=== PATIENT | female | born 1945 | race Native Hawaiian/Other Pacific Islander ===

== ENCOUNTER 2020-06-22 10:14 | Outpatient (CLI) | payer MEDICARE | END 2020-06-22 10:15 | disposition critical access hospital (66) | LOC: EMS 10:14 | PROVIDERS: ATTEND Surgery | DX: R55 Syncope and collapse (principal) | CPT/HCPCS: A0425; A0429 ==

== ENCOUNTER 2020-10-02 08:58 | Outpatient (CLI) | payer MEDICARE | END 2020-10-02 08:59 | disposition short-term general hospital (02) | LOC: EMS 08:58 | PROVIDERS: ATTEND Surgery | DX: R46.4 Slowness and poor responsiveness (principal) | CPT/HCPCS: A0425; A0427 ==

== ENCOUNTER 2021-05-04 08:00 | Outpatient (CLI) | payer MEDICARE ==
[2021-05-04 20:59] LABS: ALBUMIN 3.1 g/dL (3.2-5.5); ALBUMIN/GLOBULIN RATIO 1.2 (1.0-2.2); BILIRUBIN,TOTAL 0.8 mg/dL (0.2-1.0); CALCIUM 8.8 mg/dL (8.5-10.3); CREATININE 0.8 mg/dL (0.4-1.0); POTASSIUM 3.7 mmol/L (3.5-5.0); TOTAL PROTEIN 5.7 g/dL (6.7-8.2)
[2021-05-04 21:17] LABS: PARTIAL THROMBOPLASTIN TIME 59.7 secs (24.9-33.3)
[2021-05-04 21:28] LABS: PT - PROTHROMBIN TIME 46.1 secs (9.9-12.6)
[2021-05-05 12:24] LABS: BASOPHILS % (AUTO) 0.6 %; EOSINOPHILS % (AUTO) 1.3 %; HCT - HEMATOCRIT 43.3 % (37.0-47.0); HGB - HEMOGLOBIN 13.4 g/dL (12.0-16.0); LYMPHOCYTES # (AUTO) 0.5 10^3/uL (1.5-3.5); LYMPHOCYTES % (AUTO) 14.6 %; MEAN CORPUSCULAR HEMOGLOBIN 30.5 pg (27.0-31.0); MEAN CORPUSCULAR HGB CONC 30.9 g/dL (32.0-36.0); MEAN CORPUSCULAR VOLUME 98.4 fL (81.0-99.0); MEAN PLATELET VOLUME 9.7 fL (7.9-10.8); MONOCYTES # (AUTO) 0.3 10^3/uL (0.0-1.0); MONOCYTES % (AUTO) 8.9 %; NEUTROPHILS # (AUTO) 2.4 10^3/uL (1.5-6.6); NEUTROPHILS % (AUTO) 74.6 %; PLT - PLATELET COUNT 292 10^3/uL (130-450); WHITE BLOOD COUNT 3.2 x10^3/uL (4.8-10.8)
== END 2021-05-04 23:59 | disposition home or self-care (01) ==
LOC: LAB.N 08:00
PROVIDERS: ATTEND Nurse Practitioner
DX: R31.9 Hematuria, unspecified (principal)
CPT/HCPCS: 36415; 80053; 85025; 85610; 85730; 87086

== ENCOUNTER 2021-05-05 09:32 | Emergency (ER) | payer MEDICARE ==
[2021-05-05 09:52] VITALS: BP 137/74
[2021-05-05 11:06] LABS: PT - PROTHROMBIN TIME 45.6 secs (9.9-12.6)
[2021-05-05 11:13] LABS: PARTIAL THROMBOPLASTIN TIME 61.4 secs (24.9-33.3)
[2021-05-05 11:20] LABS: INR 4.5 (0.8-1.2)
[2021-05-05 11:25] LABS: BILIRUBIN,URINE NEGATIVE (NEGATIVE); GLUCOSE, URINE (UA) NEGATIVE (NEGATIVE); KETONES,URINE (UA) NEGATIVE (NEGATIVE); LEUKOCYTE ESTERASE, URINE TRACE (NEGATIVE); NITRITE,URINE POSITIVE (NEGATIVE); OCCULT BLOOD,URINE LARGE (NEGATIVE); PH,URINE 6.5 PH (5.0-7.5); PROTEIN,URINE 100 mg/dL (NEGATIVE); UROBILINOGEN,URINE 1 (NORMAL) E.U./dL (NORMAL)
[2021-05-05 11:28] LABS: CLARITY,URINE SL. CLOUDY (CLEAR)
[2021-05-05 11:30] LABS: BACTERIA,URINE Rare /HPF (None Seen); RBC,URINE TNTC /HPF (0-5); SQUAMOUS EPITHELIAL CELL,UR RARE Squamous (<= Few)
--- NOTE | 2021-05-05 11:53 | ED Physician Documentation ---
PD HPI FEMALE - Stated complaint Stated Complaint: LAB ABN WALK IN CLINIC REF - Chief complaint Chief Complaint: UTI - History obtained from History obtained from: Patient - History of Present Illness Timing - onset: How many days ago (4) Timing - duration: Days (4) Timing - details: Gradual onset, Still present, Waxing and waning Associated symptoms: Urinary frequency, Hematuria. No: Fever, Vaginal bleeding, Vaginal discharge Contributing factors: Other (she is on Coumadin for heart valve issue. Was to be Rx Eliquis but her Son says PCP opted to stay with the Coumadin, so pt is only on the one. I told him to ensure not taking both anticoagulants by mistake.) Similar symptoms before: Diagnosis (UTI) Recently seen: Clinic (seen at walk in clinic yesterday for the few days of urinary frequency and hematuria. She had labs done of CBC, PT/PTT, dip urine test and chemistry panel. 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 Psych: None Musculoskeletal: None Derm: None - Past Surgical History Past Surgical History: Yes - Present Medications Home Medications: Ambulatory Orders Medication Instructions Recorded Confirmed Aspirin [Dale Aspirin] 81 mg PO DAILY 05/05/21 05/05/21 Atorvastatin [Lipitor] 20 mg PO DAILY 05/05/21 05/05/21 Doxycycline Monohydrate 100 mg PO BID 05/05/21 05/05/21 Losartan [Cozaar] 50 mg PO DAILY 05/05/21 05/05/21 Metoprolol Succinate [Toprol Xl] 50 mg PO DAILY 05/05/21 05/05/21 Warfarin Sodium [Coumadin] 2 mg PO DAILY 05/05/21 05/05/21 cephALEXin [Keflex] 500 mg PO TID 6 Days #18 cap 05/05/21 - Allergies Allergies/Adverse Reactions: Allergies Allergy/AdvReac Type Severity Reaction Status Date / Time morphine Allergy Unknown Verified 08/10/21 09:52 - Social History Does the pt smoke?: No Smoking Status: Never smoker Does the pt drink ETOH?: Yes Does the pt have substance abuse?: No - Immunizations Immunizations are current?: Yes - POLST Patient has POLST: No PD ED PE NORMAL - Vitals Vital signs reviewed: Yes - General General: Alert and oriented X 3, Well developed/nourished - Abdomen Abdomen: Soft, Non tender - Back Back: No CVA TTP - Derm Derm: Normal color, Warm and dry - Neuro Neuro: No motor deficit, Normal speech Results - Vitals Vitals: Vital Signs - 24 hr 05/05/21 09:46 Temperature 37.6 C Heart Rate 67 Respiratory 18 Rate Blood Pressure 137/74 H O2 Saturation 99 Oxygen O2 Source Room air - Labs Labs: Laboratory Tests 05/05/21 05/05/21 10:55 11:14 PT 45.6 H INR 4.5 H* APTT 61.4 H Urine Color RED/BLOODY Urine Clarity SL. CLOUDY Urine pH 6.5 Ur Specific [place] 1.020 Urine Protein 100 H Urine Glucose (UA) NEGATIVE Urine Ketones NEGATIVE Urine Occult Blood LARGE H Urine Nitrite POSITIVE H Urine Bilirubin NEGATIVE Urine Urobilinogen 1 (NORMAL) Ur Leukocyte Esterase TRACE H Urine RBC TNTC H Urine WBC 4-5 Ur Squamous Epith Cells RARE Squamous Urine Bacteria Rare Ur Microscopic Review INDICATED Urine Culture Comments INDICATED PD MEDICAL DECISION MAKING - ED course Complexity details: reviewed old records, reviewed results, considered differential (frewuency and hematuria, most likel UTI. She is on coumadin so appropriate that coags elevated. I did not see INR done from walk in so did it here, along with repeat UA, which showed obvious infection. ), d/w patient Departure - Departure Disposition: 01 Home, Self Care Clinical Impression: Anticoagulant long-term use Urinary tract infection Qualifiers: Urinary tract infection type: acute cystitis Hematuria presence: with hematuria Qualified Code(s): N30.01 - Acute cystitis with hematuria Hematuria Qualifiers: Hematuria type: unspecified type Qualified Code(s): R31.9 - Hematuria, unspecified Condition: Stable Record reviewed to determine appropriate education?: Yes Instructions: ED UTI Cystitis Female Follow-Up: Danii Wilkins MD [Primary Care Provider] - Prescriptions: cephALEXin [Keflex] 500 mg PO TID 6 Days #18 cap Comments: Your Coumadin level is elevated above the therapeutic range slightly. The level today is 4.5. I would suggest holding your Coumadin dose today. Resume it tomorrow and have your INR/Coumadin level checked again at the end of the week 3 your primary care. Your urine does show signs of infection and is likely the irritation leading to the blood in the urine. Use the cephalexin 3 times a day for 6 days for the infection. I would anticipate improvement in the bloody urine over the next few days. Return if worse symptoms overall. Be sure you are taking only the Coumadin and not also taking the Eliquis recent prescription. Discharge Date/Time: 05/05/21 12:30
[2021-05-05] MEDS ORDERED: cephALEXin 250 MG CAPSULE PO STA (12:21)
== END 2021-05-05 12:30 | disposition home or self-care (01) ==
LOC: ED 09:32
DX: N30.01 Acute cystitis with hematuria (principal); Z79.01 Long term (current) use of anticoagulants; Z79.82 Long term (current) use of aspirin; I10 Essential (primary) hypertension; E10.9 Type 1 diabetes mellitus without complications
CPT/HCPCS: 36415; 81001; 85610; 85730; 87086; 99283; A9270; 81003

== ENCOUNTER 2021-05-28 10:19 | Outpatient (CLI) | payer MEDICARE, MEDICAID | END 2021-05-28 10:20 | disposition critical access hospital (66) | LOC: EMS 10:19 | DX: R55 Syncope and collapse (principal); I48.92 Unspecified atrial flutter; Z79.01 Long term (current) use of anticoagulants | CPT/HCPCS: A0425; A0429 ==

== ENCOUNTER 2021-05-28 10:40 | Inpatient (IN) | payer MEDICARE, MEDICAID ==
--- NOTE | 2021-05-28 10:55 | ED Physician Documentation ---
PD HPI SYNCOPE - Stated complaint Stated Complaint: SYNCOPE - Chief complaint Chief Complaint: General - History obtained from History obtained from: Patient, EMS - History of Present Illness Witnessed: Witnessed Timing - onset: Today Duration: Seconds Preceding symptoms: Vision changes, Light headed, Generalized weakness Associated symptoms: No: Seizure, Incontinant of stool Contributing factors: Decreased PO intake Injury occurred: None Similar symptoms before: Diagnosis (syncope related to dehydration) Recently seen: Not recently seen - Additional information Additional information: 75-year-old female with a history of atrial flutter and frequent urinary tract infections has had syncope previously related to volume depletion. Today her family attempted to assist her up from the bed, she stood, became confused and then had a period of unresponsiveness for several seconds. She was laid back down, came to and she is now brought to the hospital by ambulance. She did not injure herself. Symptoms lasted 10 to 15 seconds. She did not have seizure or vomiting she was not incontinent of urine and did not injure herself. In talking with the son by telephone he indicates that the patient has had some issue with pain in her legs for the past several days and she has been staying in bed more than usual. She usually will get herself up to go to the bathroom. She has decreased her oral intake. 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 Psych: None Musculoskeletal: None Derm: None - Past Surgical History Past Surgical History: Yes - Present Medications Home Medications: Ambulatory Orders Medication Instructions Recorded Confirmed Aspirin [[place] Aspirin] 81 mg PO DAILY 05/05/21 05/05/21 Atorvastatin [Lipitor] 20 mg PO DAILY 05/05/21 05/05/21 Losartan [Cozaar] 50 mg PO DAILY 05/05/21 05/05/21 Metoprolol Succinate [Toprol Xl] 50 mg PO DAILY 05/05/21 05/05/21 Warfarin Sodium [Coumadin] 5 mg PO DAILY 05/05/21 05/05/21 Apixaban [Eliquis] 5 mg PO BID 05/28/21 - Allergies Allergies/Adverse Reactions: Allergies Allergy/AdvReac Type Severity Reaction Status Date / Time morphine Allergy Unknown Verified 05/28/21 10:48 - Social History Does the pt smoke?: No Smoking Status: Never smoker Does the pt drink ETOH?: Yes Does the pt have substance abuse?: No - Immunizations Immunizations are current?: Yes - POLST Patient has POLST: No PD ED PE NORMAL - Vitals Vital signs reviewed: Yes (Hypertensive) - General General: No acute distress, Well developed/nourished, Other (75-year-old female with a vacant stare is soft-spoken but appears to respond appropriately to questions and is hard of hearing) - HEENT HEENT: Atraumatic, PERRL, EOMI - Neck Neck: Supple, no meningeal sign - Cardiac Cardiac: Other (Irregularly irregular rate and rhythm with a 2 out of 6 holosystolic murmur cholesterol border) - Respiratory Respiratory: No respiratory distress, Clear bilaterally - Abdomen Abdomen: Soft, Non tender - Back Back: No CVA TTP, No spinal TTP - Derm Derm: Normal color, Warm and dry, No rash - Extremities Extremities: No deformity, No edema - Neuro Neuro: serials librarian 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, No motor deficit, No sensory deficit, Other (Speech is soft) Eye Opening: Spontaneous Motor: Obeys Commands Verbal: Oriented GCS Score: 15 - Psych Psych: Normal mood, Normal affect Results - Vitals Vitals: Vital Signs - 24 hr 05/28/21 05/28/21 05/28/21 10:40 12:00 14:00 Temperature 36.4 C L Heart Rate 78 83 83 Respiratory 16 16 16 Rate Blood Pressure 133/77 H 148/71 H 141/78 H O2 Saturation 99 100 100 Oxygen O2 Source Room air - EKG (time done) 1046 Rate: Rate (enter#) (87) Rhythm: Atrial flutter Intervals: Prolonged QT Compare to prior EKG: Changed from prior EKG (SPT 06-22-2020 the QT interval has become prolonged. ) Computer interpretation: Disagree with computer (I see what looks like aflutter. ) - Labs Labs: Laboratory Tests 09/02/21 09/02/21 09/02/21 11:17 11:17 11:17 WBC 8.6 RBC 3.88 L Hgb 12.1 Hct 37.3 MCV 96.1 MCH 31.2 H MCHC 32.4 RDW 14.4 Plt Count 264 MPV 9.5 Neut # (Auto) 7.9 H Lymph # (Auto) 0.3 L Barber # (Auto) 0.3 Eos # (Auto) 0.0 Baso # (Auto) 0.0 Absolute Nucleated RBC 0.00 Nucleated RBC % 0.0 PT 67.7 H INR 6.1 H* Sodium 139 Potassium 3.9 Chloride 104 Carbon Dioxide 22 Anion Gap 13.0 BUN 16 Creatinine 1.0 Estimated GFR (MDRD) 54 L Glucose 102 H Lactic Acid Calcium 8.5 Magnesium 2.1 Total Bilirubin 1.7 H AST 30 ALT 21 Alkaline Phosphatase 47 Troponin I High Sens Total Protein 6.1 L Albumin 3.3 Globulin 2.8 Albumin/Globulin Ratio 1.2 Lipase 22 Urine Color Urine Clarity Urine pH Ur Specific [place] Urine Protein Urine Glucose (UA) Urine Ketones Urine Occult Blood Urine Nitrite Urine Bilirubin Urine Urobilinogen Ur Leukocyte Esterase Urine RBC Urine WBC Ur Squamous Epith Cells Urine Bacteria Urine Mucus Ur Microscopic Review Urine Culture Comments Nasal Adenovirus (PCR) Nasal B. parapertussis DNA (PCR) Nasal Coronavir 229E PCR Nasal Coronavir HKU1 PCR Nasal Coronavir NL63 PCR Nasal Coronavir OC43 PCR Nasal Enterovir/Rhinovir PCR Nasal Influenza B PCR Nasal Influenza A PCR Nasal Parainfluen 1 PCR Nasal Parainfluen 2 PCR Nasal Parainfluen 3 PCR Nasal Parainfluen 4 PCR Nasal RSV (PCR) Nasal B.pertussis DNA PCR Nasal C.pneumoniae (PCR) Ruddy Human Metapneumo PCR Nasal M.pneumoniae (PCR) Nasal SARS-CoV-2 (PCR) 05/28/21 05/28/21 05/28/21 11:17 11:17 14:52 WBC RBC Hgb Hct MCV MCH MCHC RDW Plt Count MPV Neut # (Auto) Lymph # (Auto) Barber # (Auto) Eos # (Auto) Baso # (Auto) Absolute Nucleated RBC Nucleated RBC % PT INR Sodium Potassium Chloride Carbon Dioxide Anion Gap BUN Creatinine Estimated GFR (MDRD) Glucose Lactic Acid 1.7 Calcium Magnesium Total Bilirubin AST ALT Alkaline Phosphatase Troponin I High Sens 11.5 Total Protein Albumin Globulin Albumin/Globulin Ratio Lipase Urine Color YELLOW Urine Clarity CLEAR Urine pH 6.0 Ur Specific [place] 1.025 Urine Protein NEGATIVE Urine Glucose (UA) NEGATIVE Urine Ketones 40 H Urine Occult Blood NEGATIVE Urine Nitrite NEGATIVE Urine Bilirubin NEGATIVE Urine Urobilinogen 1 (NORMAL) Ur Leukocyte Esterase SMALL H Urine RBC 0-5 Urine WBC 11-25 H Ur Squamous Epith Cells FEW Squamous Urine Bacteria Few Urine Mucus Few Strands Ur Microscopic Review INDICATED Urine Culture Comments INDICATED Nasal Adenovirus (PCR) Nasal B. parapertussis DNA (PCR) Nasal Coronavir 229E PCR Nasal Coronavir HKU1 PCR Nasal Coronavir NL63 PCR Nasal Coronavir OC43 PCR Nasal Enterovir/Rhinovir PCR Nasal Influenza B PCR Nasal Influenza A PCR Nasal Parainfluen 1 PCR Nasal Parainfluen 2 PCR Nasal Parainfluen 3 PCR Nasal Parainfluen 4 PCR Nasal RSV (PCR) Nasal B.pertussis DNA PCR Nasal C.pneumoniae (PCR) Ruddy Human Metapneumo PCR Nasal M.pneumoniae (PCR) Nasal SARS-CoV-2 (PCR) 05/28/21 14:55 WBC RBC Hgb Hct MCV MCH MCHC RDW Plt Count MPV Neut # (Auto) Lymph # (Auto) Barber # (Auto) Eos # (Auto) Baso # (Auto) Absolute Nucleated RBC Nucleated RBC % PT INR Sodium Potassium Chloride Carbon Dioxide Anion Gap BUN Creatinine Estimated GFR (MDRD) Glucose Lactic Acid Calcium Magnesium Total Bilirubin AST ALT Alkaline Phosphatase Troponin I High Sens Total Protein Albumin Globulin Albumin/Globulin Ratio Lipase Urine Color Urine Clarity Urine pH Ur Specific [place] Urine Protein Urine Glucose (UA) Urine Ketones Urine Occult Blood Urine Nitrite Urine Bilirubin Urine Urobilinogen Ur Leukocyte Esterase Urine RBC Urine WBC Ur Squamous Epith Cells Urine Bacteria Urine Mucus Ur Microscopic Review Urine Culture Comments Nasal Adenovirus (PCR) NOT DETECTED Nasal B. parapertussis DNA (PCR) NOT DETECTED Nasal Coronavir 229E PCR NOT DETECTED Nasal Coronavir HKU1 PCR NOT DETECTED Nasal Coronavir NL63 PCR NOT DETECTED Nasal Coronavir OC43 PCR NOT DETECTED Nasal Enterovir/Rhinovir PCR NOT DETECTED Nasal Influenza B PCR NOT DETECTED Nasal Influenza A PCR NOT DETECTED Nasal Parainfluen 1 PCR NOT DETECTED Nasal Parainfluen 2 PCR NOT DETECTED Nasal Parainfluen 3 PCR NOT DETECTED Nasal Parainfluen 4 PCR NOT DETECTED Nasal RSV (PCR) NOT DETECTED Nasal B.pertussis DNA PCR NOT DETECTED Nasal C.pneumoniae (PCR) NOT DETECTED Ruddy Human Metapneumo PCR NOT DETECTED Nasal M.pneumoniae (PCR) NOT DETECTED Nasal SARS-CoV-2 (PCR) NOT DETECTED - Rads (name of study) chest Radiology: Prelim report reviewed (Impression: Minimal right hazy basilar opacity with costophrenic angle blunting suggestive of trace effusion with potential dependent change, atelectasis or developing pneumonia), EMP read indepedently, See rad report CT head Radiology: Prelim report reviewed (Impression: 1. No CT evidence of acute intracranial pathology. 2. Diffuse atrophy and mild white matter chronic small vessel ischemic changes.), EMP read indepedently, See rad report Procedures - IVC sono (time) 1048 Bedside IVC sono: IVC measures (cm) (0.77), Dehydration (est 2+ liters deficit) PD MEDICAL DECISION MAKING - ED course Complexity details: reviewed old records, reviewed results, re-evaluated patient, considered differential, d/w patient, d/w family ED course: 75-year-old female with a syncopal episode while standing has had a decreased oral intake so that she would not have to get up to go to the bathroom. She is found to have urinary tract infection. She is administered intravenous saline and has some improvement. She is dehydrated and has urinary tract infection and potentially infection in the lung on x-ray examination. She is administered IV rocephin and after talking to the hospitalist we administered IV zithromax as well. I have reached out to the hospitalist who agrees to care for the patient in the hospital. Departure - Departure Disposition: 66 [facility] DC/Xfer Clinical Impression: Dehydration Urinary tract infection Qualifiers: Urinary tract infection type: acute cystitis Hematuria presence: without hematuria Qualified Code(s): N30.00 - Acute cystitis without hematuria Syncope Qualifiers: Syncope type: unspecified Qualified Code(s): R55 - Syncope and collapse Pneumonia Qualifiers: Pneumonia type: due to unspecified organism Laterality: right Lung location: lower lobe of lung Qualified Code(s): J18.9 - Pneumonia, unspecified organism Condition: Stable
[2021-05-28] MEDS ORDERED: SODIUM CHLORIDE 0.9% 1,000 ML IV STA ×2 (10:56→13:30)
--- NOTE | 2021-05-28 11:14 | XRAY Report ---
PROCEDURE: Chest 1 View X-Ray INDICATIONS: chest pain TECHNIQUE: One view of the chest was acquired. COMPARISON: None FINDINGS: Surgical changes and devices: None. Lungs and pleura: Minimal appearance of hazy opacities noted within the right base with costophrenic angle blunting. Mediastinum: Mediastinal contours appear normal. Heart size is enlarged. Bones and chest wall: No suspicious bony lesions. Overlying soft tissues appear unremarkable. IMPRESSION: Minimal right hazy basilar opacity with costophrenic angle blunting suggestive of trace effusion with potential he dependent change, atelectasis or developing pneumonia. Reviewed by: Nidia Sarabia MD on 05/28/2021 11:13 AM PDT Approved by: Nidia Sarabia MD on 05/28/2021 11:13 AM PDT Station ID: [id number]
[2021-05-28 11:26] LABS: BASOPHILS % (AUTO) 0.2 %; EOSINOPHILS % (AUTO) 0.1 %; HCT - HEMATOCRIT 37.3 % (37.0-47.0); HGB - HEMOGLOBIN 12.1 g/dL (12.0-16.0); LYMPHOCYTES # (AUTO) 0.3 10^3/uL (1.5-3.5); LYMPHOCYTES % (AUTO) 3.5 %; MEAN CORPUSCULAR HEMOGLOBIN 31.2 pg (27.0-31.0); MEAN CORPUSCULAR HGB CONC 32.4 g/dL (32.0-36.0); MEAN CORPUSCULAR VOLUME 96.1 fL (81.0-99.0); MEAN PLATELET VOLUME 9.5 fL (7.9-10.8); MONOCYTES # (AUTO) 0.3 10^3/uL (0.0-1.0); MONOCYTES % (AUTO) 3.8 %; NEUTROPHILS # (AUTO) 7.9 10^3/uL (1.5-6.6); NEUTROPHILS % (AUTO) 92.2 %; PLT - PLATELET COUNT 264 10^3/uL (130-450); RED BLOOD COUNT 3.88 10^6/uL (4.20-5.40); RED CELL DISTRIBUTION WIDTH 14.4 % (12.0-15.0); WHITE BLOOD COUNT 8.6 x10^3/uL (4.8-10.8)
[2021-05-28 11:34] LABS: PT - PROTHROMBIN TIME 67.7 secs (9.9-12.6)
[2021-05-28 11:40] LABS: INR 6.1 (0.8-1.2)
[2021-05-28 11:42] LABS: ALBUMIN 3.3 g/dL (3.2-5.5); ALBUMIN/GLOBULIN RATIO 1.2 (1.0-2.2); BILIRUBIN,TOTAL 1.7 mg/dL (0.2-1.0); CALCIUM 8.5 mg/dL (8.5-10.3); MAGNESIUM 2.1 mg/dL (1.7-2.8); POTASSIUM 3.9 mmol/L (3.5-5.0); TOTAL PROTEIN 6.1 g/dL (6.7-8.2)
--- NOTE | 2021-05-28 12:16 | CT Report ---
PROCEDURE: HEAD WO INDICATIONS: syncope altered LOC warfarin TECHNIQUE: Noncontrast 4.5 mm thick angled axial sections acquired from the foramen magnum to the vertex. For r adiation dose reduction, the following was used: automated exposure control, adjustment of mA and/or kV according to patient size. COMPARISON: None. FINDINGS: Image quality: Excellent. CSF spaces: Basal cisterns are patent. No extra-axial fluid collections. The ventricles are symmet dereje in size and shape. Brain: No intracranial bleeds or masses. There is cerebral volume loss for age, with resultant vent ricular and sulcal prominence. There are periventricular and deep white matter chronic small vessel ischemic changes. There is intracranial internal carotid artery atherosclerosis. Skull and face: Calvarium and visualized facial bones appear intact, without suspicious lesions. Sinuses: Visualized sinuses and mastoids are clear. IMPRESSION: 1. No CT evidence of acute intracranial pathology. 2. Diffuse atrophy and mild white matter chronic small vessel ischemic changes. Reviewed by: Benito Webb MD on 05/28/2021 12:15 PM PDT Approved by: Benito Webb MD on 05/28/2021 12:15 PM PDT Station ID: [id number]
[2021-05-28 15:03] LABS: GLUCOSE, URINE (UA) NEGATIVE (NEGATIVE); KETONES,URINE (UA) 40 mg/dL (NEGATIVE); LEUKOCYTE ESTERASE, URINE SMALL (NEGATIVE); NITRITE,URINE NEGATIVE (NEGATIVE); OCCULT BLOOD,URINE NEGATIVE (NEGATIVE); PROTEIN,URINE NEGATIVE (NEGATIVE); UROBILINOGEN,URINE 1 (NORMAL) E.U./dL (NORMAL)
[2021-05-28 15:06] LABS: CLARITY,URINE CLEAR (CLEAR)
[2021-05-28 15:11] LABS: BACTERIA,URINE Few /HPF (None Seen); ICTOTEST,URINE NEGATIVE; MUCUS,URINE Few Strands; RBC,URINE 0-5 /HPF (0-5); SQUAMOUS EPITHELIAL CELL,UR FEW Squamous (<= Few)
[2021-05-28 15:12] LABS: BILIRUBIN,URINE NEGATIVE (NEGATIVE)
[2021-05-28] MEDS ORDERED: cefTRIAXone 1 GM in SODIUM CHLORIDE 0.9% MINIBAG 100 ML IV STA (15:38)
[2021-05-28] MEDS ORDERED: AZITHROMYCIN INJ 500 MG in SODIUM CHLORIDE 0.9% 250 ML IV STA (16:00)
[2021-05-28 16:12] LABS: B. PARAPERTUSSIS- RESP PCR PAN NOT DETECTED; B. PERTUSSIS- RESP PCR PANEL NOT DETECTED; C. PNEUMONIAE- RESP PCR PANEL NOT DETECTED; CORONAVIRUS 229E-RESP PCR NOT DETECTED; CORONAVIRUS HKU1-RESP PCR NOT DETECTED; CORONAVIRUS NL63-RESP PCR NOT DETECTED; CORONAVIRUS OC43-RESP PCR NOT DETECTED; HUMAN METAPNEUMOVIRUS NOT DETECTED; INFLUENZA A- RESP PCR PANEL NOT DETECTED; INFLUENZA B - RESP PCR PANEL NOT DETECTED; M. PNEUMONIAE- RESP PCR PANEL NOT DETECTED; PARAINFLUENZA VIRUS 1 NOT DETECTED; PARAINFLUENZA VIRUS 2 NOT DETECTED; PARAINFLUENZA VIRUS 3 NOT DETECTED; PARAINFLUENZA VIRUS 4 NOT DETECTED; RHINOVIRUS/ENTEROVIRUS NOT DETECTED; RSV- RESP PCR PANEL NOT DETECTED; SARS-CoV-2 -RESP PCR PANEL NOT DETECTED
--- NOTE | 2021-05-28 16:37 | HISTORY & PHYSICAL EXAMINATION ---
Chief Complaint - Chief Complaint Chief Complaint: Left leg pain History of Present Illness - Admitted From Admitted From:: Home - History Obtained From Records Reviewed: Yes History obtained from: Patient, Daughter in law, ER Physician, EMR - History of Present Illness HPI Comment/Other: This is a 75-year-old female with a past medical history significant for atrial fibrillation/flutter on Coumadin who presents today after having a syncopal episode at home. The patient tells me she is here today because of leg pain. She denies any syncope. She states her leg has been painful for the past few days and this has caused her to ambulate less. She states the pain is throughout her leg and she had decreased range of motion due to the pain. It is worse with activity and better with rest. She reports no numbness or tingling in the lower extremities. She denies any trauma or falls. She reports no chest pain, dyspnea. She does not believe that she passed out today. She denies any cough, fever, chills, dysuria, urgency, hematuria. She believes she has had adequate oral intake over the past few days. The patient's daughter in law tells me that today when the patient got out of bed to walk with a walker she all of a sudden became quite "shaky." The patient became less responsive but did not completely pass out. She brought the patient down to her knees to prevent a fall and she felt like her eyes became glossy and rolled back for a brief period. She did not notice any seizure-like activity per se but she felt like it was close to a seizure. She did not notice any urinary incontinence. She states she has similar episode over a year ago and it was attributed to dehydration at that time. She states the patient has not eat or drink very much whatsoever and she stays in bed for most of the day. She does not report has been in physical therapy and her biggest complaint lately has just been the left leg pain. She saw her primary care edition prescribe her tramadol yesterday but she has not yet taken this. She tells me that the patient was diagnosed with urinary tract infection last month and she completed 2 weeks of treatment for it. She states the patient has been compliant with her Coumadin and and the only recent medication change was the antibiotics which she is no longer taking. The patient did have a stroke in September of this year and she was hospitalized for 5 days. The patient reportedly has not been quite the same since then and can be a little forgetful at times and just does not participate in activity as much as she used to. She normally uses a walker to ambulate. In the emergency department, she is noted to be hemodynamically stable. She was given IV fluids and labs were obtained which were unremarkable including a normal troponin and lactic acid. CT head was unremarkable. Chest x-ray suggested a trace effusion versus atelectasis or pneumonia. Urinalysis revealed pyuria and leukocyte esterase with few bacteria. She was given ceftriaxone in the emergency department. Given the above findings, medicine was consulted for admission. The patient has a POLST form which states she is a DNR and she confirms this today History - Past Medical History Cardiovascular: reports: Hypertension, High cholesterol, Atrial flutter, Atrial fibrillation Respiratory: reports: None Neuro: reports: None GI: reports: None [employer]IN: reports: None : reports: None HEENT: reports: Chronic hearing loss Psych: reports: None Musculoskeletal: reports: None Derm: reports: None MRSA Hx?: No - Family & Social History Family History Comment/Other: She reports her father from lung cancer. He was a smoker. Living arrangement: At home Living Situation: With family Social History Notes: She lives at home with her son. She denies smoking. She reports rare alcohol use. - POLST Patient has POLST: No Meds/Allgy - Home Medications Home Medications: Ambulatory Orders Medication Instructions Recorded Confirmed Aspirin [[place] Aspirin] 81 mg PO DAILY 05/05/21 05/05/21 Atorvastatin [Lipitor] 20 mg PO DAILY 05/05/21 05/05/21 Losartan [Cozaar] 50 mg PO DAILY 05/05/21 05/05/21 Metoprolol Succinate [Toprol Xl] 50 mg PO DAILY 05/05/21 05/05/21 Warfarin Sodium [Coumadin] 5 mg PO DAILY 05/05/21 05/05/21 - Allergies Allergies/Adverse Reactions: Allergies Allergy/AdvReac Type Severity Reaction Status Date / Time morphine Allergy Unknown Verified 05/28/21 10:48 Review of Systems - Constitutional Constitutional: denies: Fever, Chills, Poor appetite - Ears, Nose & Throat Ears, Nose & Throat: denies: Nasal congestion, Sore throat - Cardiovascular Cariovascular: reports: Lightheadedness. denies: Chest pain, Syncope, Exertional dyspnea, Decr. exercise tolerance - Respiratory Respiratory: denies: Cough, Sputum production, SOB at rest, SOB with exertion - Gastrointestinal Gastrointestinal: denies: Abdominal pain, Nausea, Vomiting - Genitourinary Genitourinary: denies: Dysuria, Frequency, Urgency, Hematuria - Musculoskeletal Musculoskeletal: reports: Stiffness, Limited range of motion, Other (Leg pain.). denies: Back pain - Neurological Neurological: reports: Dizziness. denies: General weakness, Focal weakness, Numbness - All Other Systems All Other Systems: reports: Reviewed and negative Exam - Vital Signs Reviewed Vital Signs: Yes Vital Signs: Vital Signs x48h Temp Pulse Resp BP Pulse Ox 05/28/21 14:00 83 16 141/78 H 100 05/28/21 12:00 83 16 148/71 H 100 05/28/21 10:40 36.4 C L 78 16 133/77 H 99 - Physical Exam General Appearance: positive: No acute distress, Alert Eyes Bilateral: positive: Normal inspection, Conjunctivae nml ENT: positive: Dry mucous membranes. negative: No signs of dehydration Neck: positive: Nml inspection Respiratory: positive: No respiratory distress, Breath sounds nml. negative: Wheezes, Rales Cardiovascular: positive: No murmur, Irregularly irregular. negative: Tachycardia, Bradycardia Abdomen: positive: Non-tender, No distention. negative: Tenderness Skin: positive: Warm, Dry Extremities: positive: No pedal edema, Other (There is no obvious erythema or edema of the left lower extremity but it is tender over the femur and she has pain at the left hip with hip flexion and external rotation.) Neurologic/Psychiatric: positive: Disoriented to time (Not oriented to year.), Other (No focal deficits.). negative: Disoriented to person, Disoriented to place Conclusion/Plan - Problem List (1) Near syncope Conclusion/Plan: Does not appear that she had a syncopal episode based off of history. It also does not sound like a seizure. I do wonder if she may have been orthostatic from moving to the standing position from seated when she felt like she was going to pass out. She is known history of atrial flutter and she is currently rate controlled. Troponin is normal. We will hydrate her with IV fluids and check orthostatics. We will obtain records him on hospital given she an echocardiogram earlier this year and we do not have echocardiogram available for the next few days. Suspect that she will be able to go home tomorrow. (2) Dehydration Conclusion/Plan: She does appear dehydrated and family reports decreased oral intake at home and I suspect is likely contributing to her near syncopal episodes. We will hydrate her with IV lactated Ringer's. Encourage oral intake. (3) Supratherapeutic INR Conclusion/Plan: Her INR is elevated at 6.1. She was prescribed antibiotics last month for UTI but no other changes to medications. We will hold her Coumadin today and recheck INR in the morning. She will need a dose adjustment of her Coumadin on discharge and to follow-up with her primary care physician. (4) Atrial flutter Conclusion/Plan: She is currently rate controlled. She is on metoprolol and Coumadin. We will continue the metoprolol and monitor on telemetry given the near syncopal episode. (5) Left thigh pain Conclusion/Plan: Although she has no history of trauma, concerns for fracture or severe osteoarthritis. We have ordered a left hip/pelvis and femur film for further evaluation. She is on Coumadin so low suspicion for DVT. We will use Tylenol and ibuprofen as needed for pain control. We will also trial ibuprofen. (6) Asymptomatic bacteriuria Conclusion/Plan: Urinalysis reveals pyuria and few bacteria but she does not have symptoms of an infection. Her prior urinalyses have been similar and previous cultures had no growth. We will hold off antibiotics at this time unless there is evidence of infection or she develops symptoms. (7) History of stroke Conclusion/Plan: She had stroke in September of this year and was hospitalized at [facility]. She is on Coumadin, statin. We will continue statin but hold Coumadin given her elevated INR. - Lab Results Lab results reviewed: Yes Fish Bones: 05/28/21 11:17 05/28/21 11:17 - Diagnostic Imaging Results Diagnostic Imaging Results: positive: Final report reviewed Core Measures - Anticipated LOS I expect patient to be DC'd or transferred within 96 hours.: Yes - Issues Hospital Issues and Management Plan: 75-year-old female presents with near syncope found to be dehydrated. She also has asymptomatic bacteriuria and left leg pain. We will place in observation for IV fluids and to monitor on telemetry. - DVT/VTE - Prophylaxis VTE/DVT Device ordered at admit?: No VTE/DVT Prophylaxis med ordered at admit?: Yes
--- NOTE | 2021-05-28 16:53 | XRAY Report ---
PROCEDURE: Hip w/Pelvis 2-3V LT INDICATIONS: L hip pain TECHNIQUE: AP pelvis with lateral view(s) of the left hip(s). COMPARISON: None. FINDINGS: Bones: No fractures or dislocations. Moderate bilateral hip joint osteophytic changes are seen. No e vidence of avascular necrosis of femoral head. Pelvic ring appears intact. No suspicious bony lesion s. Soft tissues: The visualized bowel gas pattern is normal. No suspicious soft tissue calcifications. IMPRESSION: No acute pelvic or hip fracture. Moderate bilateral hip joint osseous arthritis. No evide nce of avascular necrosis of femoral head. Reviewed by: Benito Webb MD on 05/28/2021 4:52 PM PDT Approved by: Benito Webb MD on 05/28/2021 4:52 PM PDT Station ID: [id number]
--- NOTE | 2021-05-28 16:53 | XRAY Report ---
PROCEDURE: Femur 2V LT INDICATIONS: lateral pain TECHNIQUE: 3 views of the femur were acquired. COMPARISON: None. FINDINGS: Bones: No fractures or dislocations. Left hip and left knee joint osteoarthritic changes are seen. B enign-appearing lytic lesion with sclerotic margin is noted involving anterior medial aspect of dista l femoral shaft without adjacent periosteal reaction or cortical destruction. Soft tissues: No suspicious soft tissue calcifications or masses. IMPRESSION: No acute femoral fracture or dislocation. 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 Benign-appeari ng intraosseous lesion involving medial aspect of distal femoral shaft above the medial femoral condy le and likely represent enchondroma or fibrous dysplasia and is an incidental finding. Reviewed by: Benito Webb MD on 05/28/2021 4:51 PM PDT Approved by: Benito Webb MD on 05/28/2021 4:51 PM PDT Station ID: [id number]
[2021-05-28] MEDS ORDERED: ONDANSETRON 4 MG/2 ML VIAL IVP PRN (17:00)
[2021-05-28] MEDS ORDERED: IBUPROFEN 600 MG TABLET PO PRN (17:00)
[2021-05-28] MEDS ORDERED: ONDANSETRON ODT 4 MG TABLET TL PRN (17:00)
[2021-05-28] MEDS ORDERED: SODIUM CHLORIDE FLUSH 0.9% 10 ML SYRINGE IVP PRN (17:00)
[2021-05-28] MEDS: LACTATED RINGERS 1,000 ML IV SCH (18:06)
[2021-05-28] MEDS: SODIUM CHLORIDE FLUSH 0.9% 10 ML SYRINGE IVP SCH (18:24)
[2021-05-28] MEDS: ACETAMINOPHEN 325 MG TABLET PO PRN (21:21)
[2021-05-29] MEDS: SODIUM CHLORIDE FLUSH 0.9% 10 ML SYRINGE IVP SCH ×4 (00:01→23:29)
[2021-05-29] MEDS: LACTATED RINGERS 1,000 ML IV SCH (03:47)
[2021-05-29 06:07] LABS: BASOPHILS % (AUTO) 0.2 %; EOSINOPHILS % (AUTO) 0.1 %; HCT - HEMATOCRIT 26.1 % (37.0-47.0); HGB - HEMOGLOBIN 8.5 g/dL (12.0-16.0); LYMPHOCYTES # (AUTO) 0.4 10^3/uL (1.5-3.5); LYMPHOCYTES % (AUTO) 4.7 %; MEAN CORPUSCULAR HEMOGLOBIN 31.4 pg (27.0-31.0); MEAN CORPUSCULAR HGB CONC 32.6 g/dL (32.0-36.0); MEAN CORPUSCULAR VOLUME 96.3 fL (81.0-99.0); MEAN PLATELET VOLUME 9.8 fL (7.9-10.8); MONOCYTES # (AUTO) 0.9 10^3/uL (0.0-1.0); MONOCYTES % (AUTO) 9.7 %; NEUTROPHILS # (AUTO) 7.7 10^3/uL (1.5-6.6); NEUTROPHILS % (AUTO) 84.9 %; PLT - PLATELET COUNT 195 10^3/uL (130-450); RED BLOOD COUNT 2.71 10^6/uL (4.20-5.40); RED CELL DISTRIBUTION WIDTH 14.6 % (12.0-15.0); WHITE BLOOD COUNT 9.1 x10^3/uL (4.8-10.8)
[2021-05-29 06:11] LABS: PT - PROTHROMBIN TIME 88.4 secs (9.9-12.6)
[2021-05-29 06:16] LABS: CALCIUM 7.5 mg/dL (8.5-10.3); CREATININE 0.8 mg/dL (0.4-1.0); POTASSIUM 3.6 mmol/L (3.5-5.0)
[2021-05-29 07:48] LABS: % IRON SATURATION 11 % (20-50); IRON 25 ug/dL (28-170); TOTAL IRON BINDING CAPACITY 238 ug/dL (250-450); TRANSFERRIN 170 mg/dL (192-382)
[2021-05-29] MEDS ORDERED: PHYTONADIONE 10 MG/ML AMP PO ONE (08:00)
[2021-05-29] MEDS ORDERED: CHERRY SYRUP 10 ML UDC PO ONE (08:00)
--- NOTE | 2021-05-29 09:17 | PHARMACY PROGRESS NOTE ---
- Best Possible Medication History Admit Date and Time: 05/28/21 1700 Processed by: Pharmacy Medication History completed: Yes Patient Interview: Completed Secondary Source(s): Spouse/Significant other, Caregiver (PATIENT'S DAUGHTER WAS ABLE TO CONFIRM MEDICATIONS) As the person ultimately responsible for medication therapy, providers are able to order a medication from an existing home medication list in [facility] via the "Reconcile Routine" prior to Confirmation of that medication by health support specialist. Such practice is discouraged except when the physician, in their clinical judgment, deems that a medical need exists for a medication without regard to previous use.
[2021-05-29 09:21] LABS: HCT - HEMATOCRIT 30.6 % (37.0-47.0); HGB - HEMOGLOBIN 9.3 g/dL (12.0-16.0)
--- NOTE | 2021-05-29 10:28 | PROVIDER PROGRESS NOTE ---
Subjective - Prog Note Date Prog Note Date: 05/29/21 - Subjective Subjective: She continues to complain of left leg pain. It is worse with any movement. She denies dyspnea. Current Medications - Current Medications Current Medications: Active Medications Acetaminophen (Acetaminophen 325 Mg Tablet) 650 mg PO Q4HR PRN PRN Reason: Pain 1 to 4 Last Admin: 05/28/21 21:21 Dose: 650 mg Documented by: Ondansetron HCl (Ondansetron Odt 4 Mg Tablet) 4 mg TL Q6HR PRN PRN Reason: Nausea / Vomiting Ondansetron HCl (Ondansetron 4 Mg/2 Ml Vial) 4 mg IVP Q6HR PRN PRN Reason: Nausea / Vomiting Sodium Chloride (Sodium Chloride Flush 0.9% 10 Ml Syringe) 10 ml IVP PRN PRN PRN Reason: NEEDED PER PROVIDER ORDERS Sodium Chloride (Sodium Chloride Flush 0.9% 10 Ml Syringe) 10 ml IVP 0 100,0900,1700 SHAKIR Last Admin: 05/29/21 07:59 Dose: 10 ml Documented by: Tramadol HCl (Tramadol 50 Mg Tablet) 50 mg PO Q4HR PRN PRN Reason: PAIN Aspirin [Ganado Aspirin] 81 mg PO DAILY 05/05/21 Atorvastatin [Lipitor] 20 mg PO QPM 05/05/21 Losartan [Cozaar] 50 mg PO DAILY 05/05/21 Metoprolol Succinate [Toprol Xl] 50 mg PO DAILY 05/05/21 Warfarin Sodium [Coumadin] 2 mg PO [facility] 05/05/21 Warfarin [Coumadin] 1 mg PO TU 05/29/21 Objective - Vital Signs/Intake & Output Reviewed Vital Signs: Yes Vital Signs: Vital Signs x48h Temp Pulse Resp BP Pulse Ox 05/29/21 08:26 36.5 C 79 20 125/57 L 100 05/29/21 05:00 36.5 C 97 16 128/59 L 100 Intake & Output: Intake & Output 05/26/21 05/27/21 05/28/21 05/29/21 23:59 23:59 23:59 23:59 Intake Total 2953 1798.333 Output Total 250 200 Balance 2703 1598.333 - Objective General Appearance: positive: No acute distress, Alert Eyes Bilateral: positive: Normal inspection, Conjunctivae nml ENT: positive: ENT inspection nml Neck: positive: Nml inspection Respiratory: positive: No respiratory distress. negative: Wheezes, Rales Cardiovascular: positive: Irregularly irregular. negative: Tachycardia, Systoli c murmur Abdomen: positive: Nml bowel sounds, No distention, Tenderness (Left lower quadrant.). negative: Guarding, Rebound Skin: positive: Warm, Dry Extremities: positive: No pedal edema, Other (She is tender in the left lower extremity from the left hip down to the knee. No obvious erythema or edema.) Neurologic/Psychiatric: negative: Disoriented to person, Disoriented to place - Lab Results Fish Bones: 05/29/21 13:45 05/29/21 05:32 Other Labs: Lab Results x24hrs 05/29/21 05/29/21 05/29/21 Range/Units 09:05 05:32 05:32 WBC (4.8-10.8) x10^3/uL RBC (4.20-5.40) 10^6/uL Hgb 9.3 L (12.0-16.0) g/dL Hct 30.6 L (37.0-47.0) % MCV (81.0-99.0) fL MCH (27.0-31.0) pg MCHC (32.0-36.0) g/dL RDW (12.0-15.0) % Plt Count (130-450) 10^3/uL MPV (7.9-10.8) fL Neut # (Auto) (1.5-6.6) 10^3/uL Lymph # (Auto) (1.5-3.5) 10^3/uL Drew # (Auto) (0.0-1.0) 10^3/uL Eos # (Auto) (0.0-0.7) 10^3/uL Baso # (Auto) (0.0-0.1) 10^3/uL Absolute Nucleated RBC x10^3/uL Nucleated RBC % /100WBC PT (9.9-12.6) secs INR (0.8-1.2) Sodium (135-145) mmol/L Potassium (3.5-5.0) mmol/L Chloride (101-111) mmol/L Carbon Dioxide (21-32) mmol/L Anion Gap (6-13) BUN (6-20) mg/dL Creatinine (0.4-1.0) mg/dL Estimated GFR (MDRD) (>89) Glucose (70-100) mg/dL Lactic Acid (0.5-2.2) mmol/L Calcium (8.5-10.3) mg/dL Magnesium (1.7-2.8) mg/dL Iron 25 L (28-170) ug/dL TIBC 238 L (250-450) ug/dL % Saturation 11 L (20-50) % Transferrin 170 L (192-382) mg/dL Ferritin 38.6 (11.0-306.8) ng/mL Total Bilirubin (0.2-1.0) mg/dL AST (10-42) IU/L ALT (10-60) IU/L Alkaline Phosphatase (42-121) IU/L Troponin I High Sens (2.3-14.8) ng/L Total Protein (6.7-8.2) g/dL Albumin (3.2-5.5) g/dL Globulin (2.1-4.2) g/dL Albumin/Globulin Ratio (1.0-2.2) Lipase (22-51) U/L Urine Color Urine Clarity (CLEAR) Urine pH (5.0-7.5) PH Ur Specific [place] (1.002-1.030) Urine Protein (NEGATIVE) mg/dL Urine Glucose (UA) (NEGATIVE) mg/dL Urine Ketones (NEGATIVE) mg/dL Urine Occult Blood (NEGATIVE) Urine Nitrite (NEGATIVE) Urine Bilirubin (NEGATIVE) Urine Urobilinogen (NORMAL) E.U./dL Ur Leukocyte Esterase (NEGATIVE) Urine RBC (0-5) /HPF Urine WBC (0-5) /HPF Ur Squamous Epith Cells (<= Few) Urine Bacteria (None Seen) /HPF Urine Mucus Ur Microscopic Review Urine Culture Comments Nasal Adenovirus (PCR) Nasal B. parapertussis DNA (PCR) Nasal Coronavir 229E PCR Nasal Coronavir HKU1 PCR Nasal Coronavir NL63 PCR Nasal Coronavir OC43 PCR Nasal Enterovir/Rhinovir PCR Nasal Influenza B PCR Nasal Influenza A PCR Nasal Parainfluen 1 PCR Nasal Parainfluen 2 PCR Nasal Parainfluen 3 PCR Nasal Parainfluen 4 PCR Nasal RSV (PCR) Nasal B.pertussis DNA PCR Nasal C.pneumoniae (PCR) Ruddy Human Metapneumo PCR Nasal M.pneumoniae (PCR) Nasal SARS-CoV-2 (PCR) 05/29/21 05/29/21 05/29/21 Range/Units 05:32 05:32 05:32 WBC 9.1 (4.8-10.8) x10^3/uL RBC 2.71 L (4.20-5.40) 10^6/uL Hgb 8.5 L (12.0-16.0) g/dL Hct 26.1 L (37.0-47.0) % MCV 96.3 (81.0-99.0) fL MCH 31.4 H (27.0-31.0) pg MCHC 32.6 (32.0-36.0) g/dL RDW 14.6 (12.0-15.0) % Plt Count 195 (130-450) 10^3/uL MPV 9.8 (7.9-10.8) fL Neut # (Auto) 7.7 H (1.5-6.6) 10^3/uL Lymph # (Auto) 0.4 L (1.5-3.5) 10^3/uL Drew # (Auto) 0.9 (0.0-1.0) 10^3/uL Eos # (Auto) 0.0 (0.0-0.7) 10^3/uL Baso # (Auto) 0.0 (0.0-0.1) 10^3/uL Absolute Nucleated RBC 0.00 x10^3/uL Nucleated RBC % 0.0 /100WBC PT 88.4 H (9.9-12.6) secs INR 8.0 H* (0.8-1.2) Sodium 137 (135-145) mmol/L Potassium 3.6 (3.5-5.0) mmol/L Chloride 107 (101-111) mmol/L Carbon Dioxide 20 L (21-32) mmol/L Anion Gap 10.0 (6-13) BUN 18 (6-20) mg/dL Creatinine 0.8 (0.4-1.0) mg/dL Estimated GFR (MDRD) 70 L (>89) Glucose 118 H (70-100) mg/dL Lactic Acid (0.5-2.2) mmol/L Calcium 7.5 L (8.5-10.3) mg/dL Magnesium (1.7-2.8) mg/dL Iron (28-170) ug/dL TIBC (250-450) ug/dL % Saturation (20-50) % Transferrin (192-382) mg/dL Ferritin (11.0-306.8) ng/mL Total Bilirubin (0.2-1.0) mg/dL AST (10-42) IU/L ALT (10-60) IU/L Alkaline Phosphatase (42-121) IU/L Troponin I High Sens (2.3-14.8) ng/L Total Protein (6.7-8.2) g/dL Albumin (3.2-5.5) g/dL Globulin (2.1-4.2) g/dL Albumin/Globulin Ratio (1.0-2.2) Lipase (22-51) U/L Urine Color Urine Clarity (CLEAR) Urine pH (5.0-7.5) PH Ur Specific [place] (1.002-1.030) Urine Protein (NEGATIVE) mg/dL Urine Glucose (UA) (NEGATIVE) mg/dL Urine Ketones (NEGATIVE) mg/dL Urine Occult Blood (NEGATIVE) Urine Nitrite (NEGATIVE) Urine Bilirubin (NEGATIVE) Urine Urobilinogen (NORMAL) E.U./dL Ur Leukocyte Esterase (NEGATIVE) Urine RBC (0-5) /HPF Urine WBC (0-5) /HPF Ur Squamous Epith Cells (<= Few) Urine Bacteria (None Seen) /HPF Urine Mucus Ur Microscopic Review Urine Culture Comments Nasal Adenovirus (PCR) Nasal B. parapertussis DNA (PCR) Nasal Coronavir 229E PCR Nasal Coronavir HKU1 PCR Nasal Coronavir NL63 PCR Nasal Coronavir OC43 PCR Nasal Enterovir/Rhinovir PCR Nasal Influenza B PCR Nasal Influenza A PCR Nasal Parainfluen 1 PCR Nasal Parainfluen 2 PCR Nasal Parainfluen 3 PCR Nasal Parainfluen 4 PCR Nasal RSV (PCR) Nasal B.pertussis DNA PCR Nasal C.pneumoniae (PCR) Ruddy Human Metapneumo PCR Nasal M.pneumoniae (PCR) Nasal SARS-CoV-2 (PCR) 05/28/21 05/28/21 05/28/21 Range/Units 14:55 14:52 11:17 WBC (4.8-10.8) x10^3/uL RBC (4.20-5.40) 10^6/uL Hgb (12.0-16.0) g/dL Hct (37.0-47.0) % MCV (81.0-99.0) fL MCH (27.0-31.0) pg MCHC (32.0-36.0) g/dL RDW (12.0-15.0) % Plt Count (130-450) 10^3/uL MPV (7.9-10.8) fL Neut # (Auto) (1.5-6.6) 10^3/uL Lymph # (Auto) (1.5-3.5) 10^3/uL Drew # (Auto) (0.0-1.0) 10^3/uL Eos # (Auto) (0.0-0.7) 10^3/uL Baso # (Auto) (0.0-0.1) 10^3/uL Absolute Nucleated RBC x10^3/uL Nucleated RBC % /100WBC PT (9.9-12.6) secs INR (0.8-1.2) Sodium (135-145) mmol/L Potassium (3.5-5.0) mmol/L Chloride (101-111) mmol/L Carbon Dioxide (21-32) mmol/L Anion Gap (6-13) BUN (6-20) mg/dL Creatinine (0.4-1.0) mg/dL Estimated GFR (MDRD) (>89) Glucose (70-100) mg/dL Lactic Acid (0.5-2.2) mmol/L Calcium (8.5-10.3) mg/dL Magnesium (1.7-2.8) mg/dL Iron (28-170) ug/dL TIBC (250-450) ug/dL % Saturation (20-50) % Transferrin (192-382) mg/dL Ferritin (11.0-306.8) ng/mL Total Bilirubin (0.2-1.0) mg/dL AST (10-42) IU/L ALT (10-60) IU/L Alkaline Phosphatase (42-121) IU/L Troponin I High Sens 11.5 (2.3-14.8) ng/L Total Protein (6.7-8.2) g/dL Albumin (3.2-5.5) g/dL Globulin (2.1-4.2) g/dL Albumin/Globulin Ratio (1.0-2.2) Lipase (22-51) U/L Urine Color YELLOW Urine Clarity CLEAR (CLEAR) Urine pH 6.0 (5.0-7.5) PH Ur Specific [place] 1.025 (1.002-1.030) Urine Protein NEGATIVE (NEGATIVE) mg/dL Urine Glucose (UA) NEGATIVE (NEGATIVE) mg/dL Urine Ketones 40 H (NEGATIVE) mg/dL Urine Occult Blood NEGATIVE (NEGATIVE) Urine Nitrite NEGATIVE (NEGATIVE) Urine Bilirubin NEGATIVE (NEGATIVE) Urine Urobilinogen 1 (NORMAL) (NORMAL) E.U./dL Ur Leukocyte Esterase SMALL H (NEGATIVE) Urine RBC 0-5 (0-5) /HPF Urine WBC 11-25 H (0-5) /HPF Ur Squamous Epith Cells FEW Squamous (<= Few) Urine Bacteria Few (None Seen) /HPF Urine Mucus Few Strands Ur Microscopic Review INDICATED Urine Culture Comments INDICATED Nasal Adenovirus (PCR) NOT DETECTED Nasal B. parapertussis DNA (PCR) NOT DETECTED Nasal Coronavir 229E PCR NOT DETECTED Nasal Coronavir HKU1 PCR NOT DETECTED Nasal Coronavir NL63 PCR NOT DETECTED Nasal Coronavir OC43 PCR NOT DETECTED Nasal Enterovir/Rhinovir PCR NOT DETECTED Nasal Influenza B PCR NOT DETECTED Nasal Influenza A PCR NOT DETECTED Nasal Parainfluen 1 PCR NOT DETECTED Nasal Parainfluen 2 PCR NOT DETECTED Nasal Parainfluen 3 PCR NOT DETECTED Nasal Parainfluen 4 PCR NOT DETECTED Nasal RSV (PCR) NOT DETECTED Nasal B.pertussis DNA PCR NOT DETECTED Nasal C.pneumoniae (PCR) NOT DETECTED Ruddy Human Metapneumo PCR NOT DETECTED Nasal M.pneumoniae (PCR) NOT DETECTED Nasal SARS-CoV-2 (PCR) NOT DETECTED 05/28/21 05/28/21 05/28/21 Range/Units 11:17 11:17 11:17 WBC (4.8-10.8) x10^3/uL RBC (4.20-5.40) 10^6/uL Hgb (12.0-16.0) g/dL Hct (37.0-47.0) % MCV (81.0-99.0) fL MCH (27.0-31.0) pg MCHC (32.0-36.0) g/dL RDW (12.0-15.0) % Plt Count (130-450) 10^3/uL MPV (7.9-10.8) fL Neut # (Auto) (1.5-6.6) 10^3/uL Lymph # (Auto) (1.5-3.5) 10^3/uL Drew # (Auto) (0.0-1.0) 10^3/uL Eos # (Auto) (0.0-0.7) 10^3/uL Baso # (Auto) (0.0-0.1) 10^3/uL Absolute Nucleated RBC x10^3/uL Nucleated RBC % /100WBC PT 67.7 H (9.9-12.6) secs INR 6.1 H* (0.8-1.2) Sodium 139 (135-145) mmol/L Potassium 3.9 (3.5-5.0) mmol/L Chloride 104 (101-111) mmol/L Carbon Dioxide 22 (21-32) mmol/L Anion Gap 13.0 (6-13) BUN 16 (6-20) mg/dL Creatinine 1.0 (0.4-1.0) mg/dL Estimated GFR (MDRD) 54 L (>89) Glucose 102 H (70-100) mg/dL Lactic Acid 1.7 (0.5-2.2) mmol/L Calcium 8.5 (8.5-10.3) mg/dL Magnesium 2.1 (1.7-2.8) mg/dL Iron (28-170) ug/dL TIBC (250-450) ug/dL % Saturation (20-50) % Transferrin (192-382) mg/dL Ferritin (11.0-306.8) ng/mL Total Bilirubin 1.7 H (0.2-1.0) mg/dL AST 30 (10-42) IU/L ALT 21 (10-60) IU/L Alkaline Phosphatase 47 (42-121) IU/L Troponin I High Sens (2.3-14.8) ng/L Total Protein 6.1 L (6.7-8.2) g/dL Albumin 3.3 (3.2-5.5) g/dL Globulin 2.8 (2.1-4.2) g/dL Albumin/Globulin Ratio 1.2 (1.0-2.2) Lipase 22 (22-51) U/L Urine Color Urine Clarity (CLEAR) Urine pH (5.0-7.5) PH Ur Specific [place] (1.002-1.030) Urine Protein (NEGATIVE) mg/dL Urine Glucose (UA) (NEGATIVE) mg/dL Urine Ketones (NEGATIVE) mg/dL Urine Occult Blood (NEGATIVE) Urine Nitrite (NEGATIVE) Urine Bilirubin (NEGATIVE) Urine Urobilinogen (NORMAL) E.U./dL Ur Leukocyte Esterase (NEGATIVE) Urine RBC (0-5) /HPF Urine WBC (0-5) /HPF Ur Squamous Epith Cells (<= Few) Urine Bacteria (None Seen) /HPF Urine Mucus Ur Microscopic Review Urine Culture Comments Nasal Adenovirus (PCR) Nasal B. parapertussis DNA (PCR) Nasal Coronavir 229E PCR Nasal Coronavir HKU1 PCR Nasal Coronavir NL63 PCR Nasal Coronavir OC43 PCR Nasal Enterovir/Rhinovir PCR Nasal Influenza B PCR Nasal Influenza A PCR Nasal Parainfluen 1 PCR Nasal Parainfluen 2 PCR Nasal Parainfluen 3 PCR Nasal Parainfluen 4 PCR Nasal RSV (PCR) Nasal B.pertussis DNA PCR Nasal C.pneumoniae (PCR) Ruddy Human Metapneumo PCR Nasal M.pneumoniae (PCR) Nasal SARS-CoV-2 (PCR) 05/28/21 Range/Units 11:17 WBC 8.6 (4.8-10.8) x10^3/uL RBC 3.88 L (4.20-5.40) 10^6/uL Hgb 12.1 (12.0-16.0) g/dL Hct 37.3 (37.0-47.0) % MCV 96.1 (81.0-99.0) fL MCH 31.2 H (27.0-31.0) pg MCHC 32.4 (32.0-36.0) g/dL RDW 14.4 (12.0-15.0) % Plt Count 264 (130-450) 10^3/uL MPV 9.5 (7.9-10.8) fL Neut # (Auto) 7.9 H (1.5-6.6) 10^3/uL Lymph # (Auto) 0.3 L (1.5-3.5) 10^3/uL Drew # (Auto) 0.3 (0.0-1.0) 10^3/uL Eos # (Auto) 0.0 (0.0-0.7) 10^3/uL Baso # (Auto) 0.0 (0.0-0.1) 10^3/uL Absolute Nucleated RBC 0.00 x10^3/uL Nucleated RBC % 0.0 /100WBC PT (9.9-12.6) secs INR (0.8-1.2) Sodium (135-145) mmol/L Potassium (3.5-5.0) mmol/L Chloride (101-111) mmol/L Carbon Dioxide (21-32) mmol/L Anion Gap (6-13) BUN (6-20) mg/dL Creatinine (0.4-1.0) mg/dL Estimated GFR (MDRD) (>89) Glucose (70-100) mg/dL Lactic Acid (0.5-2.2) mmol/L Calcium (8.5-10.3) mg/dL Magnesium (1.7-2.8) mg/dL Iron (28-170) ug/dL TIBC (250-450) ug/dL % Saturation (20-50) % Transferrin (192-382) mg/dL Ferritin (11.0-306.8) ng/mL Total Bilirubin (0.2-1.0) mg/dL AST (10-42) IU/L ALT (10-60) IU/L Alkaline Phosphatase (42-121) IU/L Troponin I High Sens (2.3-14.8) ng/L Total Protein (6.7-8.2) g/dL Albumin (3.2-5.5) g/dL Globulin (2.1-4.2) g/dL Albumin/Globulin Ratio (1.0-2.2) Lipase (22-51) U/L Urine Color Urine Clarity (CLEAR) Urine pH (5.0-7.5) PH Ur Specific [place] (1.002-1.030) Urine Protein (NEGATIVE) mg/dL Urine Glucose (UA) (NEGATIVE) mg/dL Urine Ketones (NEGATIVE) mg/dL Urine Occult Blood (NEGATIVE) Urine Nitrite (NEGATIVE) Urine Bilirubin (NEGATIVE) Urine Urobilinogen (NORMAL) E.U./dL Ur Leukocyte Esterase (NEGATIVE) Urine RBC (0-5) /HPF Urine WBC (0-5) /HPF Ur Squamous Epith Cells (<= Few) Urine Bacteria (None Seen) /HPF Urine Mucus Ur Microscopic Review Urine Culture Comments Nasal Adenovirus (PCR) Nasal B. parapertussis DNA (PCR) Nasal Coronavir 229E PCR Nasal Coronavir HKU1 PCR Nasal Coronavir NL63 PCR Nasal Coronavir OC43 PCR Nasal Enterovir/Rhinovir PCR Nasal Influenza B PCR Nasal Influenza A PCR Nasal Parainfluen 1 PCR Nasal Parainfluen 2 PCR Nasal Parainfluen 3 PCR Nasal Parainfluen 4 PCR Nasal RSV (PCR) Nasal B.pertussis DNA PCR Nasal C.pneumoniae (PCR) Ruddy Human Metapneumo PCR Nasal M.pneumoniae (PCR) Nasal SARS-CoV-2 (PCR) Assessment/Plan - Problem List (1) Acute blood loss anemia Impression: Her hemoglobin this morning has dropped to 8.5. Recheck 2 hours later reveals it is still decreased at 9.3. Given her hemoglobin is greater than 12 on admission, the concern is for hemorrhage especially given her INR is supratherapeutic. She is complaining of left lower quadrant abdominal pain today and continues to complain of left leg pain. I will order a CT of the abdomen and pelvis to look for spontaneous bleeding such as a retroperitoneal hematoma. We will trend her hemoglobin every 8 hours. Check iron studies. We will give her vitamin K for elevated INR and consider FFP. Transfuse for goal hemoglobin greater than 7 or if there is evidence of significant bleeding. Will check her stool for occult blood. (2) Near syncope Impression: This was initially thought to be secondary to dehydration but I am concerned now that this could have been an early presentation of acute blood loss anemia. There has been no evidence of arrhythmia on telemetry. We have not order an echocardiogram as we do not have this available until next Tuesday and she did have one earlier on this year when she had a stroke. We will continue further work-up of her anemia as mentioned above. (3) Supratherapeutic INR Impression: Her INR is risen to over 8 today. Given the concern for bleeding, we will give her vitamin K now and if there is evidence of hemorrhage we will administer FFP. (4) Left thigh pain Impression: X-rays suggested arthritis but no evidence of fracture and nothing that would explain her acute onset of pain. I am concerned with the anemia and left lower quadrant abdominal pain that she could have a retroperitoneal hematoma and so we will order a CT for further evaluation. Continue with Tylenol and tramadol as needed for pain control. (5) Dehydration Impression: She appeared dehydrated initially with dry oral mucosa. Her renal function was at baseline. This is now resolved. (6) Atrial flutter Impression: She is rate controlled. We will continue to hold her home metoprolol for the time being given she is normotensive and the concern is for acute blood loss anemia. We will resume when appropriate. We will give her vitamin K for elevated INR and consider FFP. (7) Asymptomatic bacteriuria Impression: She has no evidence of infection. We are holding antibiotics. (8) History of stroke Impression: Stable. We are holding aspirin and Coumadin given the concern for bleed and the fact that her INR is supratherapeutic. We can continue her home statin.
[2021-05-29] MEDS ORDERED: IOPAMIDOL-300 100 ML VIAL ONE (10:45)
[2021-05-29] MEDS ORDERED: IOPAMIDOL-300 50 ML VIAL IVP ONE (13:22)
[2021-05-29 13:54] LABS: HCT - HEMATOCRIT 25.9 % (37.0-47.0); HGB - HEMOGLOBIN 8.2 g/dL (12.0-16.0)
[2021-05-29] MEDS: traMADol 50 MG TABLET PO PRN ×2 (14:00→20:40)
--- NOTE | 2021-05-29 14:09 | CT Report ---
PROCEDURE: Abdomen/Pelvis W INDICATIONS: Acute anemia. LLQ pain. Left leg pain. CONTRAST: IV CONTRAST: Isovue 300 ml: 100 PO CONTRAST: *NO PO CONTRAST TECHNIQUE: After the administration of intravenous contrast, 5 mm thick sections acquired from the diaphragms to the symphysis. 5 mm thick coronal and sagittal reformats were acquired. For radiation dose reducti on, the following was used: automated exposure control, adjustment of mA and/or kV according to mynor ent size. COMPARISON: None. FINDINGS: Image quality: Excellent. ABDOMEN: Lung bases: Lung bases demonstrate minimal bilateral effusions. Heart is enlarged. Solid organs: Liver demonstrates multiple low-attenuation foci, most prominent in the left lobe soo uring 2.8 cm. Gallbladder has been removed Biliary system is non dilated. Pancreas enhances normall y. No adrenal nodules. Kidneys demonstrate normal size and enhancement, without hydronephrosis. Sp leilani is unremarkable. Peritoneum and bowel: Bowel loops are nonobstructed. There is a mild thickened appearance of the pro ximal small bowel. No free fluid or air. Nodes and vessels: No retroperitoneal or mesenteric adenopathy by size criteria. Colonic diverticul a are present. Aorta and inferior vena cava are normal in size. Miscellaneous: There is enlargement of the left so as muscle becoming contiguous with an enlarged leola opsoas measuring 7.5 x 6.7 x 11.8 cm. Hounsfield units range from 25-45. There are areas of stranding within the mesenteric fat surrounding the musculature. The left femoral vein is diminutive in appear ance within the proximal portion, appearing markedly compressed at the margin of the psoas muscle. Di stally is somewhat enlarged with heterogeneous appearance of contrast opacification. PELVIS: Genitourinary: Bladder wall thickness is normal. Miscellaneous: No inguinal hernias or adenopathy. Bones: No suspicious bony lesions. No vertebral body compression fractures. IMPRESSION: 1. Heterogeneous appearance of markedly enlarged left psoas and iliopsoas musculature with Hounsfield units suggestive of hemorrhage/hematoma. It is noted that the left femoral vein is somewhat abnormal in appearance appearing markedly atretic within portions traversing the margin of the psoas muscle a nd more distally becoming enlarged and heterogeneously enhancing. There is no direct visualized activ e extravasation from the vessel. However, recommend correlation to any recent trauma or potential janine rce of vascular injury. 2. Nonspecific thickened appearance of the proximal small bowel possibly related to incomplete disten tion or potentially enteritis. 3. Minimal bilateral effusions. 4. Low-attenuation foci within the liver with the largest foci most suggestive of cysts. Reviewed by: Nidia Sarabia MD on 05/29/2021 2:07 PM PDT Approved by: Nidia Sarabia MD on 05/29/2021 2:07 PM PDT Station ID: [id number]
[2021-05-29] MEDS: ACETAMINOPHEN 325 MG TABLET PO PRN (16:14)
[2021-05-29] MEDS: MULTIVITAMIN W/MINERALS TABLET PO SCH (17:42)
[2021-05-29] MEDS: cefTRIAXone 1 GM in SODIUM CHLORIDE 0.9% MINIBAG 100 ML IV SCH (17:48)
[2021-05-29 21:57] LABS: HCT - HEMATOCRIT 26.8 % (37.0-47.0); HGB - HEMOGLOBIN 8.8 g/dL (12.0-16.0)
[2021-05-29 22:07] LABS: INR 1.3 (0.8-1.2); PT - PROTHROMBIN TIME 14.5 secs (9.9-12.6)
[2021-05-30 05:20] LABS: BASOPHILS % (AUTO) 0.3 %; EOSINOPHILS # (AUTO) 0.1 10^3/uL (0.0-0.7); EOSINOPHILS % (AUTO) 0.8 %; HCT - HEMATOCRIT 24.1 % (37.0-47.0); HGB - HEMOGLOBIN 7.8 g/dL (12.0-16.0); LYMPHOCYTES # (AUTO) 0.4 10^3/uL (1.5-3.5); MEAN CORPUSCULAR HEMOGLOBIN 30.1 pg (27.0-31.0); MEAN CORPUSCULAR HGB CONC 32.4 g/dL (32.0-36.0); MEAN CORPUSCULAR VOLUME 93.1 fL (81.0-99.0); MEAN PLATELET VOLUME 9.4 fL (7.9-10.8); MONOCYTES # (AUTO) 0.5 10^3/uL (0.0-1.0); NEUTROPHILS # (AUTO) 6.2 10^3/uL (1.5-6.6); NEUTROPHILS % (AUTO) 84.9 %; NRBC ABSOLUTE COUNT (AUTO) 0.02 x10^3/uL; NUCLEATED RED BLOOD CELLS AUTO 0.3 /100WBC; PLT - PLATELET COUNT 148 10^3/uL (130-450); RED BLOOD COUNT 2.59 10^6/uL (4.20-5.40); RED CELL DISTRIBUTION WIDTH 15.4 % (12.0-15.0); WHITE BLOOD COUNT 7.3 x10^3/uL (4.8-10.8)
[2021-05-30 05:25] LABS: INR 1.2 (0.8-1.2); PT - PROTHROMBIN TIME 12.9 secs (9.9-12.6)
[2021-05-30 05:30] LABS: CALCIUM 8.4 mg/dL (8.5-10.3); CREATININE 0.6 mg/dL (0.4-1.0); POTASSIUM 3.3 mmol/L (3.5-5.0)
[2021-05-30] MEDS: traMADol 50 MG TABLET PO PRN ×2 (06:33→13:42)
--- NOTE | 2021-05-30 07:40 | PROVIDER PROGRESS NOTE ---
Subjective - Prog Note Date Prog Note Date: 05/30/21 - Subjective Subjective: She still complains of left leg pain but feels this is slightly improved. Denies chest pain or dyspnea. Current Medications - Current Medications Current Medications: Active Medications Acetaminophen (Acetaminophen 325 Mg Tablet) 650 mg PO Q4HR PRN PRN Reason: Pain 1 to 4 Last Admin: 05/29/21 16:14 Dose: 650 mg Documented by: Ceftriaxone Sodium 1 gm/ (Sodium Chloride) 100 mls @ 200 mls/hr IV DAILY [facility] Last Infusion: 05/29/21 18:20 Dose: Infused Documented by: Multivitamins/Minerals (Multivitamin W/Minerals Tablet) 1 tab PO DAILYWM [facility] Last Admin: 05/29/21 17:42 Dose: 1 tab Documented by: Ondansetron HCl (Ondansetron Odt 4 Mg Tablet) 4 mg TL Q6HR PRN PRN Reason: Nausea / Vomiting Ondansetron HCl (Ondansetron 4 Mg/2 Ml Vial) 4 mg IVP Q6HR PRN PRN Reason: Nausea / Vomiting Sodium Chloride (Sodium Chloride Flush 0.9% 10 Ml Syringe) 10 ml IVP PRN PRN PRN Reason: NEEDED PER PROVIDER ORDERS Sodium Chloride (Sodium Chloride Flush 0.9% 10 Ml Syringe) 10 ml IVP 0100,0900,1700 [facility] Last Admin: 05/29/21 23:29 Dose: 10 ml Documented by: Tramadol HCl (Tramadol 50 Mg Tablet) 50 mg PO Q4HR PRN PRN Reason: PAIN Last Admin: 05/30/21 06:33 Dose: 50 mg Documented by: Aspirin [[place]s Aspirin] 81 mg PO DAILY 05/05/21 Atorvastatin [Lipitor] 20 mg PO QPM 05/05/21 Losartan [Cozaar] 50 mg PO DAILY 05/05/21 Metoprolol Succinate [Toprol Xl] 50 mg PO DAILY 05/05/21 Warfarin Sodium [Coumadin] 2 mg PO SUMOWETH 05/05/21 Warfarin [Coumadin] 1 mg PO TU 05/29/21 Objective - Vital Signs/Intake & Output Reviewed Vital Signs: Yes Vital Signs: Vital Signs x48h Temp Pulse Resp BP Pulse Ox 05/30/21 04:58 36.8 C 108 H 20 122/58 L 96 05/29/21 23:40 36.4 C L 100 18 121/49 L 98 Intake & Output: Intake & Output 05/27/21 05/28/21 05/29/21 05/30/21 23:59 23:59 23:59 23:59 Intake Total 2953 3488.333 Output Total 250 450 Balance 2703 3038.333 - Objective General Appearance: positive: No acute distress, Alert Eyes Bilateral: positive: Normal inspection, Conjunctivae nml ENT: positive: ENT inspection nml Neck: positive: Nml inspection Respiratory: positive: No respiratory distress. negative: Wheezes, Rales Cardiovascular: positive: Irregularly irregular, Tachycardia. negative: Bradycardia, Systolic murmur Abdomen: positive: No distention, Tenderness (Tenderness in left lower quadrant). negative: Non-tender, Guarding, Rebound Skin: positive: Warm, Dry Extremities: positive: No pedal edema, Other (Her left lower extremity is still operator batch or continuous to palpation predominantly near the left hip and the more proximal portion of the femur. This is less tender than yesterday. She has +2 dorsalis pedis pulse in the left lower extremity.) Neurologic/Psychiatric: negative: Disoriented to person, Disoriented to place - Lab Results Fish Bones: 05/30/21 10:11 05/30/21 04:50 Other Labs: Lab Results x24hrs 05/30/21 05/30/21 05/30/21 Range/Units 04:50 04:50 04:50 WBC 7.3 (4.8-10.8) x10^3/uL RBC 2.59 L (4.20-5.40) 10^6/uL Hgb 7.8 L (12.0-16.0) g/dL Hct 24.1 L (37.0-47.0) % MCV 93.1 (81.0-99.0) fL MCH 30.1 (27.0-31.0) pg MCHC 32.4 (32.0-36.0) g/dL RDW 15.4 H (12.0-15.0) % Plt Count 148 (130-450) 10^3/uL MPV 9.4 (7.9-10.8) fL Neut # (Auto) 6.2 (1.5-6.6) 10^3/uL Lymph # (Auto) 0.4 L (1.5-3.5) 10^3/uL [place] # (Auto) 0.5 (0.0-1.0) 10^3/uL Eos # (Auto) 0.1 (0.0-0.7) 10^3/uL Baso # (Auto) 0.0 (0.0-0.1) 10^3/uL Absolute Nucleated RBC 0.02 x10^3/uL Nucleated RBC % 0.3 /100WBC PT 12.9 H (9.9-12.6) secs INR 1.2 (0.8-1.2) Sodium 138 (135-145) mmol/L Potassium 3.3 L (3.5-5.0) mmol/L Chloride 106 (101-111) mmol/L Carbon Dioxide 24 (21-32) mmol/L Anion Gap 8.0 (6-13) BUN 14 (6-20) mg/dL Creatinine 0.6 (0.4-1.0) mg/dL Estimated GFR (MDRD) 97 (>89) Glucose 126 H (70-100) mg/dL Calcium 8.4 L (8.5-10.3) mg/dL Iron (28-170) ug/dL TIBC (250-450) ug/dL % Saturation (20-50) % Transferrin (192-382) mg/dL Ferritin (11.0-306.8) ng/mL Blood Type Blood Type Recheck Antibody Screen Crossmatch IS Only 05/29/21 05/29/21 05/29/21 Range/Units 21:51 21:51 13:45 WBC (4.8-10.8) x10^3/uL RBC (4.20-5.40) 10^6/uL Hgb 8.8 L 8.2 L (12.0-16.0) g/dL Hct 26.8 L 25.9 L (37.0-47.0) % MCV (81.0-99.0) fL MCH (27.0-31.0) pg MCHC (32.0-36.0) g/dL RDW (12.0-15.0) % Plt Count (130-450) 10^3/uL MPV (7.9-10.8) fL Neut # (Auto) (1.5-6.6) 10^3/uL Lymph # (Auto) (1.5-3.5) 10^3/uL [place] # (Auto) (0.0-1.0) 10^3/uL Eos # (Auto) (0.0-0.7) 10^3/uL Baso # (Auto) (0.0-0.1) 10^3/uL Absolute Nucleated RBC x10^3/uL Nucleated RBC % /100WBC PT 14.5 H (9.9-12.6) secs INR 1.3 H (0.8-1.2) Sodium (135-145) mmol/L Potassium (3.5-5.0) mmol/L Chloride (101-111) mmol/L Carbon Dioxide (21-32) mmol/L Anion Gap (6-13) BUN (6-20) mg/dL Creatinine (0.4-1.0) mg/dL Estimated GFR (MDRD) (>89) Glucose (70-100) mg/dL Calcium (8.5-10.3) mg/dL Iron (28-170) ug/dL TIBC (250-450) ug/dL % Saturation (20-50) % Transferrin (192-382) mg/dL Ferritin (11.0-306.8) ng/mL Blood Type Blood Type Recheck Antibody Screen Crossmatch IS Only 05/29/21 05/29/21 05/29/21 Range/Units 09:15 09:05 05:32 WBC (4.8-10.8) x10^3/uL RBC (4.20-5.40) 10^6/uL Hgb 9.3 L (12.0-16.0) g/dL Hct 30.6 L (37.0-47.0) % MCV (81.0-99.0) fL MCH (27.0-31.0) pg MCHC (32.0-36.0) g/dL RDW (12.0-15.0) % Plt Count (130-450) 10^3/uL MPV (7.9-10.8) fL Neut # (Auto) (1.5-6.6) 10^3/uL Lymph # (Auto) (1.5-3.5) 10^3/uL [place] # (Auto) (0.0-1.0) 10^3/uL Eos # (Auto) (0.0-0.7) 10^3/uL Baso # (Auto) (0.0-0.1) 10^3/uL Absolute Nucleated RBC x10^3/uL Nucleated RBC % /100WBC PT (9.9-12.6) secs INR (0.8-1.2) Sodium (135-145) mmol/L Potassium (3.5-5.0) mmol/L Chloride (101-111) mmol/L Carbon Dioxide (21-32) mmol/L Anion Gap (6-13) BUN (6-20) mg/dL Creatinine (0.4-1.0) mg/dL Estimated GFR (MDRD) (>89) Glucose (70-100) mg/dL Calcium (8.5-10.3) mg/dL Iron (28-170) ug/dL TIBC (250-450) ug/dL % Saturation (20-50) % Transferrin (192-382) mg/dL Ferritin (11.0-306.8) ng/mL Blood Type AB POSITIVE Blood Type Recheck AB POSITIVE Antibody Screen NEGATIVE Crossmatch IS Only See Detail 05/29/21 05/29/21 Range/Units 05:32 05:32 WBC (4.8-10.8) x10^3/uL RBC (4.20-5.40) 10^6/uL Hgb (12.0-16.0) g/dL Hct (37.0-47.0) % MCV (81.0-99.0) fL MCH (27.0-31.0) pg MCHC (32.0-36.0) g/dL RDW (12.0-15.0) % Plt Count (130-450) 10^3/uL MPV (7.9-10.8) fL Neut # (Auto) (1.5-6.6) 10^3/uL Lymph # (Auto) (1.5-3.5) 10^3/uL [place] # (Auto) (0.0-1.0) 10^3/uL Eos # (Auto) (0.0-0.7) 10^3/uL Baso # (Auto) (0.0-0.1) 10^3/uL Absolute Nucleated RBC x10^3/uL Nucleated RBC % /100WBC PT (9.9-12.6) secs INR (0.8-1.2) Sodium (135-145) mmol/L Potassium (3.5-5.0) mmol/L Chloride (101-111) mmol/L Carbon Dioxide (21-32) mmol/L Anion Gap (6-13) BUN (6-20) mg/dL Creatinine (0.4-1.0) mg/dL Estimated GFR (MDRD) (>89) Glucose (70-100) mg/dL Calcium (8.5-10.3) mg/dL Iron 25 L (28-170) ug/dL TIBC 238 L (250-450) ug/dL % Saturation 11 L (20-50) % Transferrin 170 L (192-382) mg/dL Ferritin 38.6 (11.0-306.8) ng/mL Blood Type Blood Type Recheck Antibody Screen Crossmatch IS Only ABX Reporting Has patient been on IV antibiotics over the past 48 hours?: Yes Assessment/Plan - Problem List (1) Hematoma of left iliopsoas muscle Impression: This is the cause of her acute blood loss anemia. This was evident on CT of the abdomen and pelvis yesterday. This is also the cause of her left lower extremity pain. I did speak with vascular surgery at [facility] yesterday who felt that transfer for intervention was not warranted at this time. They recommended reversing her coagulopathy and to support her with blood products. They also recommended repeating a CT in 4 to 6 weeks to ensure resolution. They also asked us to monitor for evidence of infection as this could potentially develop into an abscess and that would require percutaneous drainage. The patient did receive 1 unit of packed red blood cell yesterday and her hemoglobin still decreased this morning at 7.8. Hemodynamically she has been stable except for tachycardia with heart rates in the 90s to low 100s which may also be due to her home metoprolol being held. At this time, we will continue to trend her hemoglobin every 8 hours and transfuse as needed. Her coagulopathy has been reversed as her INR is now 1.2. We have started her on ceftriaxone IV for her asymptomatic bacteriuria as a vascular surgery recommended treating it to prevent seeding to the iliopsoas and potentially causing an abscess. (2) Acute blood loss anemia Impression: This is secondary to the hematoma of the left iliopsoas muscle. Her hemoglobin this morning is 7.8 despite receiving 1 unit of packed red blood cell. There h as been no other obvious source of bleeding. Her INR has been reversed. We will recheck her hemoglobin this morning and continue to check this every 8 hours. If her hemoglobin continues to trend down then we will transfuse her with another unit of packed red blood cell. I am hopeful that now the coagulopathy as her first that her bleeding will subside. (3) Supratherapeutic INR Impression: This unfortunately contributed to the left iliopsoas hematoma. Her INR was as high as 8. This has now been reversed after she received vitamin K and FFP and her INR is now 1.2. We will discontinue her Coumadin on discharge until she has a repeat CT in 4 to 6 weeks to ensure resolution of the hematoma. I will recommend to her primary care physician to consider a different anticoagulant such as a NOAC given her INRs have been labile. (4) Near syncope Impression: This was likely due to the hemorrhage that is now evident. There has been no evidence of arrhythmia on telemetry as she has been in atrial fibrillation which is chronic for her. (5) Left thigh pain Impression: This is secondary to the left iliopsoas hematoma. We are continuing pain control with Tylenol and tramadol as needed. We are avoiding NSAIDs given the bleeding. (6) Atrial flutter Impression: She has been in atrial flutter/fibrillation throughout her stay. Her heart rate is now in the 90s to low 100s. This likely due to acute blood loss anemia as well as her home metoprolol being held. We will continue to hold her metoprolol for the time being until we are certain that she is hemodynamically stable. We will look to resume this over the next 24 hours. (7) Asymptomatic bacteriuria Impression: Although we do not normally treat asymptomatic bacteriuria, vascular surgery did recommend treating with antibiotics given the left iliopsoas hematoma to prevent an abscess from developing. She is not on ceftriaxone with today being day 3. Urine culture is growing E. coli and sensitivities are pending. (8) History of stroke Impression: She had a stroke in September 2020 where she was hospitalized at [facility]. We are continuing her Lipitor but holding the Coumadin and aspirin given the iliopsoas hematoma. (9) Dehydration Impression: She did appear dehydrated initially and she has since been resuscitated with IV fluids.
[2021-05-30] MEDS: MULTIVITAMIN W/MINERALS TABLET PO SCH (09:36)
[2021-05-30] MEDS: cefTRIAXone 1 GM in SODIUM CHLORIDE 0.9% MINIBAG 100 ML IV SCH (09:37)
[2021-05-30] MEDS: SODIUM CHLORIDE FLUSH 0.9% 10 ML SYRINGE IVP SCH ×3 (10:07→23:25)
[2021-05-30 10:18] LABS: HCT - HEMATOCRIT 25.2 % (37.0-47.0); HGB - HEMOGLOBIN 8.1 g/dL (12.0-16.0)
[2021-05-30] MEDS ORDERED: POTASSIUM CHLORIDE 20 MEQ TABLET PO ONE (10:47)
[2021-05-30 14:22] LABS: HCT - HEMATOCRIT 26.9 % (37.0-47.0); HGB - HEMOGLOBIN 8.4 g/dL (12.0-16.0)
[2021-05-30] MEDS: ATORVASTATIN 10 MG TABLET PO SCH (20:39)
[2021-05-30] MEDS: ACETAMINOPHEN 325 MG TABLET PO PRN (20:39)
[2021-05-30] MEDS: polyethylene glycoL 3350 17 GM PACKET PO SCH (20:39)
[2021-05-30 22:04] LABS: HCT - HEMATOCRIT 26.3 % (37.0-47.0); HGB - HEMOGLOBIN 8.6 g/dL (12.0-16.0)
[2021-05-31 05:41] LABS: BASOPHILS % (AUTO) 0.2 %; EOSINOPHILS # (AUTO) 0.1 10^3/uL (0.0-0.7); EOSINOPHILS % (AUTO) 2.7 %; HCT - HEMATOCRIT 22.9 % (37.0-47.0); HGB - HEMOGLOBIN 7.4 g/dL (12.0-16.0); LYMPHOCYTES # (AUTO) 0.3 10^3/uL (1.5-3.5); LYMPHOCYTES % (AUTO) 6.2 %; MEAN CORPUSCULAR HEMOGLOBIN 30.6 pg (27.0-31.0); MEAN CORPUSCULAR HGB CONC 32.3 g/dL (32.0-36.0); MEAN CORPUSCULAR VOLUME 94.6 fL (81.0-99.0); MEAN PLATELET VOLUME 9.3 fL (7.9-10.8); MONOCYTES # (AUTO) 0.3 10^3/uL (0.0-1.0); MONOCYTES % (AUTO) 6.8 %; NEUTROPHILS # (AUTO) 4.1 10^3/uL (1.5-6.6); NEUTROPHILS % (AUTO) 83.7 %; PLT - PLATELET COUNT 169 10^3/uL (130-450); RED BLOOD COUNT 2.42 10^6/uL (4.20-5.40); RED CELL DISTRIBUTION WIDTH 15.6 % (12.0-15.0); WHITE BLOOD COUNT 4.9 x10^3/uL (4.8-10.8)
[2021-05-31 05:46] LABS: INR 1.1 (0.8-1.2)
[2021-05-31 05:50] LABS: CALCIUM 8.1 mg/dL (8.5-10.3); CREATININE 0.5 mg/dL (0.4-1.0); POTASSIUM 3.9 mmol/L (3.5-5.0)
--- NOTE | 2021-05-31 07:51 | PROVIDER PROGRESS NOTE ---
Subjective - Prog Note Date Prog Note Date: 05/31/21 - Subjective Subjective: She continues to complain of leg pain and feels that it is not improved. She still has left-sided abdominal pain. Current Medications - Current Medications Current Medications: Active Medications Acetaminophen (Acetaminophen 325 Mg Tablet) 650 mg PO Q4HR PRN PRN Reason: Pain 1 to 4 Last Admin: 05/30/21 20:39 Dose: 650 mg Documented by: Atorvastatin Calcium (Atorvastatin 10 Mg Tablet) 20 mg PO QPM [facility] Last Admin: 05/30/21 20:39 Dose: 20 mg Documented by: Ceftriaxone Sodium 1 gm/ (Sodium Chloride) 100 mls @ 200 mls/hr IV DAILY [facility] Last Infusion: 05/30/21 10:07 Dose: Infused Documented by: Multivitamins/Minerals (Multivitamin W/Minerals Tablet) 1 tab PO DAILYWM [facility] Last Admin: 05/30/21 09:36 Dose: 1 tab Documented by: Ondansetron HCl (Ondansetron Odt 4 Mg Tablet) 4 mg TL Q6HR PRN PRN Reason: Nausea / Vomiting Ondansetron HCl (Ondansetron 4 Mg/2 Ml Vial) 4 mg IVP Q6HR PRN PRN Reason: Nausea / Vomiting Polyethylene Glycol (Polyethylene Glycol 3350 17 Gm Packet) 17 gm PO DAILY [facility] Last Admin: 05/30/21 20:39 Dose: 17 gm Documented by: Sodium Chloride (Sodium Chloride Flush 0.9% 10 Ml Syringe) 10 ml IVP PRN PRN PRN Reason: NEEDED PER PROVIDER ORDERS Sodium Chloride (Sodium Chloride Flush 0.9% 10 Ml Syringe) 10 ml IVP 0100,0900,1700 [facility] Last Admin: 05/30/21 23:25 Dose: 10 ml Documented by: Tramadol HCl (Tramadol 50 Mg Tablet) 50 mg PO Q4HR PRN PRN Reason: PAIN Last Admin: 05/30/21 13:42 Dose: 50 mg Documented by: Aspirin [[place] Aspirin] 81 mg PO DAILY 05/05/21 Atorvastatin [Lipitor] 20 mg PO QPM 05/05/21 Losartan [Cozaar] 50 mg PO DAILY 05/05/21 Metoprolol Succinate [Toprol Xl] 50 mg PO DAILY 05/05/21 Warfarin Sodium [Coumadin] 2 mg PO SUMOWETHFR 05/05/21 Warfarin [Coumadin] 1 mg PO TU 05/29/21 Objective - Vital Signs/Intake & Output Reviewed Vital Signs: Yes Vital Signs: Vital Signs x48h Temp Pulse Resp BP Pulse Ox 05/31/21 05:37 36.7 C 87 20 110/46 L 96 Intake & Output: Intake & Output 05/28/21 05/29/21 05/30/21 05/31/21 23:59 23:59 23:59 23:59 Intake Total 2953 3488.333 320 250 Output Total 250 450 600 Balance 2703 3038.333 320 -350 - Objective General Appearance: positive: No acute distress, Alert Eyes Bilateral: positive: Normal inspection, Conjunctivae nml ENT: positive: ENT inspection nml Neck: positive: Nml inspection Respiratory: positive: No respiratory distress. negative: Wheezes, Rales Cardiovascular: positive: Irregularly irregular. negative: Tachycardia, Systolic murmur Abdomen: positive: No distention, Tenderness (Tender in left lower quadrant.). negative: Non-tender, Guarding, Rebound Skin: positive: Warm, Dry Extremities: positive: No pedal edema, Other (She has minimal tenderness in her left lower extremity now. No erythema. +2 dorsalis pedis pulses in the left lower extremity.) Neurologic/Psychiatric: negative: Disoriented to person, Disoriented to place - Lab Results Fish Bones: 05/31/21 11:20 05/31/21 05:34 Other Labs: Lab Results x24hrs 05/31/21 05/31/21 05/31/21 Range/Units 05:34 05:34 05:34 WBC 4.9 (4.8-10.8) x10^3/uL RBC 2.42 L (4.20-5.40) 10^6/uL Hgb 7.4 L (12.0-16.0) g/dL Hct 22.9 L (37.0-47.0) % MCV 94.6 (81.0-99.0) fL MCH 30.6 (27.0-31.0) pg MCHC 32.3 (32.0-36.0) g/dL RDW 15.6 H (12.0-15.0) % Plt Count 169 (130-450) 10^3/uL MPV 9.3 (7.9-10.8) fL Neut # (Auto) 4.1 (1.5-6.6) 10^3/uL Lymph # (Auto) 0.3 L (1.5-3.5) 10^3/uL [place] # (Auto) 0.3 (0.0-1.0) 10^3/uL Eos # (Auto) 0.1 (0.0-0.7) 10^3/uL Baso # (Auto) 0.0 (0.0-0.1) 10^3/uL Absolute Nucleated RBC 0.00 x10^3/uL Nucleated RBC % 0.0 /100WBC PT 12.0 (9.9-12.6) secs INR 1.1 (0.8-1.2) Sodium 138 (135-145) mmol/L Potassium 3.9 (3.5-5.0) mmol/L Chloride 104 (101-111) mmol/L Carbon Dioxide 27 (21-32) mmol/L Anion Gap 7.0 (6-13) BUN 12 (6-20) mg/dL Creatinine 0.5 (0.4-1.0) mg/dL Estimated GFR (MDRD) 120 (>89) Glucose 101 H (70-100) mg/dL Calcium 8.1 L (8.5-10.3) mg/dL 05/30/21 05/30/21 05/30/21 Range/Units 21:55 14:05 10:11 WBC (4.8-10.8) x10^3/uL RBC (4.20-5.40) 10^6/uL Hgb 8.6 L 8.4 L 8.1 L (12.0-16.0) g/dL Hct 26.3 L 26.9 L 25.2 L (37.0-47.0) % MCV (81.0-99.0) fL MCH (27.0-31.0) pg MCHC (32.0-36.0) g/dL RDW (12.0-15.0) % Plt Count (130-450) 10^3/uL MPV (7.9-10.8) fL Neut # (Auto) (1.5-6.6) 10^3/uL Lymph # (Auto) (1.5-3.5) 10^3/uL [place] # (Auto) (0.0-1.0) 10^3/uL Eos # (Auto) (0.0-0.7) 10^3/uL Baso # (Auto) (0.0-0.1) 10^3/uL Absolute Nucleated RBC x10^3/uL Nucleated RBC % /100WBC PT (9.9-12.6) secs INR (0.8-1.2) Sodium (135-145) mmol/L Potassium (3.5-5.0) mmol/L Chloride (101-111) mmol/L Carbon Dioxide (21-32) mmol/L Anion Gap (6-13) BUN (6-20) mg/dL Creatinine (0.4-1.0) mg/dL Estimated GFR (MDRD) (>89) Glucose (70-100) mg/dL Calcium (8.5-10.3) mg/dL ABX Reporting Has patient been on IV antibiotics over the past 48 hours?: Yes Assessment/Plan - Problem List (1) Hematoma of left iliopsoas muscle Impression: This is the cause of her acute blood loss anemia and was likely secondary to the supratherapeutic INR. Her hemoglobin has been stabilizing but is decreased this morning. We will recheck it at 10 AM. Her INR has been reversed after she was administered FFP. Fortunately, she is stable from a hemodynamic standpoint as her blood pressure is stable and her heart rate is improved compared to yesterday and this is also considering we are holding her home beta-joshua. We will continue to monitor her hemoglobin and if it is stable we will plan for di scharge tomorrow. She will need a repeat CT of the abdomen and pelvis in about 4 to 6 weeks to ensure resolution of the hematoma. (2) Acute blood loss anemia Impression: Her hemoglobin had appeared to be stabilizing yesterday as it was slowly increasing throughout the day. This morning hemoglobin is decreased at 7.4 and this could reflect bleeding or lab variation. We will recheck a hemoglobin at 10 AM and if it is also decreased then suspect this is likely true anemia secondary to ongoing bleeding. Nonetheless, she will be monitored throughout the day today and if hemoglobin stabilizes then we can consider a possible discharge tomorrow. If her hemoglobin continues to decrease then we will transfuse as needed. She has already received 1 unit of packed red blood cell. (3) Supratherapeutic INR Impression: This likely contributed to the iliopsoas hematoma. Her INR was initially 6 and increased to 8. It is now 1.1 after she was reversed with vitamin K and fresh frozen plasma. We will continue to hold Coumadin given the hemorrhage. Anticoagulation can be considered down the road if repeat CT in 4 to 6 weeks shows resolution of the hematoma. I would recommend to the family that we consider another anticoagulant except for Coumadin given her INRs have been labile in the past. (4) Near syncope Impression: This was likely due to the hemorrhage that is now evident. There has been no evidence of arrhythmia on telemetry as she has been in atrial fibrillation which is chronic for her. (5) Left thigh pain Impression: This is secondary to the left iliopsoas hematoma. We are continuing pain control with Tylenol and tramadol as needed. We are avoiding NSAIDs given the bleeding. (6) Atrial flutter Impression: She remains in atrial fibrillation/flutter. Her heart rate is actually improved today but she still tachycardic at times which may be due to the hemorrhage or the fact that her metoprolol is being held. If her hemoglobin stabilizes today then we will look to resume her metoprolol. (7) Asymptomatic bacteriuria Impression: Although we do not normally treat asymptomatic bacteriuria, vascular surgery did recommend treating with antibiotics given the left iliopsoas hematoma to prevent an abscess from developing. Urine culture grew E. coli that is sensitive to ceftriaxone and ciprofloxacin. She has already had 3 days of ceftriaxone and we will switch her to oral Ceftin to complete 4 more days of therapy for total 7 days. (8) History of stroke Impression: She had a stroke in September 2020 where she was hospitalized at [facility]. We are continuing her Lipitor but holding the Coumadin and aspirin given the iliopsoas hematoma. (9) Dehydration Impression: She did appear dehydrated initially and she has since been resuscitated with IV fluids.
[2021-05-31] MEDS: polyethylene glycoL 3350 17 GM PACKET PO SCH (10:11)
[2021-05-31] MEDS: SODIUM CHLORIDE FLUSH 0.9% 10 ML SYRINGE IVP SCH ×2 (10:12→16:45)
[2021-05-31] MEDS: MULTIVITAMIN W/MINERALS TABLET PO SCH (10:12)
[2021-05-31] MEDS: traMADol 50 MG TABLET PO PRN ×2 (10:16→20:03)
[2021-05-31 11:33] LABS: HGB - HEMOGLOBIN 8.5 g/dL (12.0-16.0)
[2021-05-31] MEDS: ACETAMINOPHEN 325 MG TABLET PO PRN (16:45)
[2021-05-31] MEDS: METOPROLOL SUCCINATE 50 MG TABLET PO SCH (18:03)
[2021-05-31] MEDS: ATORVASTATIN 10 MG TABLET PO SCH (20:03)
[2021-05-31 21:58] LABS: HCT - HEMATOCRIT 25.4 % (37.0-47.0); HGB - HEMOGLOBIN 8.3 g/dL (12.0-16.0)
[2021-06-01] MEDS: SODIUM CHLORIDE FLUSH 0.9% 10 ML SYRINGE IVP SCH ×3 (00:30→15:55)
[2021-06-01 05:37] LABS: BASOPHILS % (AUTO) 0.8 %; EOSINOPHILS # (AUTO) 0.1 10^3/uL (0.0-0.7); EOSINOPHILS % (AUTO) 2.8 %; HCT - HEMATOCRIT 24.8 % (37.0-47.0); HGB - HEMOGLOBIN 8.1 g/dL (12.0-16.0); LYMPHOCYTES # (AUTO) 0.3 10^3/uL (1.5-3.5); LYMPHOCYTES % (AUTO) 7.2 %; MEAN CORPUSCULAR HEMOGLOBIN 31.2 pg (27.0-31.0); MEAN CORPUSCULAR HGB CONC 32.7 g/dL (32.0-36.0); MEAN CORPUSCULAR VOLUME 95.4 fL (81.0-99.0); MEAN PLATELET VOLUME 9.3 fL (7.9-10.8); MONOCYTES # (AUTO) 0.4 10^3/uL (0.0-1.0); MONOCYTES % (AUTO) 9.5 %; NEUTROPHILS # (AUTO) 3.1 10^3/uL (1.5-6.6); NEUTROPHILS % (AUTO) 79.4 %; PLT - PLATELET COUNT 217 10^3/uL (130-450); RED CELL DISTRIBUTION WIDTH 15.4 % (12.0-15.0); WHITE BLOOD COUNT 3.9 x10^3/uL (4.8-10.8)
[2021-06-01 05:40] LABS: PT - PROTHROMBIN TIME 11.5 secs (9.9-12.6)
[2021-06-01 05:44] LABS: CALCIUM 8.2 mg/dL (8.5-10.3); CREATININE 0.5 mg/dL (0.4-1.0); POTASSIUM 4.2 mmol/L (3.5-5.0)
--- NOTE | 2021-06-01 07:30 | PROVIDER PROGRESS NOTE ---
Subjective - Prog Note Date Prog Note Date: 06/01/21 - Subjective Subjective: She continues to complain of left leg pain. Denies chest pain or dyspnea. Current Medications - Current Medications Current Medications: Active Medications Acetaminophen (Acetaminophen 325 Mg Tablet) 650 mg PO Q4HR PRN PRN Reason: Pain 1 to 4 Last Admin: 05/31/21 16:45 Dose: 650 mg Documented by: Atorvastatin Calcium (Atorvastatin 10 Mg Tablet) 20 mg PO QPM [facility] Last Admin: 05/31/21 20:03 Dose: 20 mg Documented by: Cefuroxime Axetil (Cefuroxime Axetil 250 Mg Tablet) 250 mg PO BID [facility] Last Admin: 06/01/21 08:07 Dose: 250 mg Documented by: Ferrous Sulfate (Ferrous Sulfate 325 Mg Tablet) 325 mg PO DAILYWM [facility] Last Admin: 06/01/21 08:07 Dose: 325 mg Documented by: Metoprolol Succinate (Metoprolol Succinate 50 Mg Tablet) 50 mg PO DAILY [facility] Last Admin: 06/01/21 08:07 Dose: 50 mg Documented by: Multivitamins/Minerals (Multivitamin W/Minerals Tablet) 1 tab PO DAILYWM [facility] Last Admin: 06/01/21 08:07 Dose: 1 tab Documented by: Ondansetron HCl (Ondansetron Odt 4 Mg Tablet) 4 mg TL Q6HR PRN PRN Reason: Nausea / Vomiting Ondansetron HCl (Ondansetron 4 Mg/2 Ml Vial) 4 mg IVP Q6HR PRN PRN Reason: Nausea / Vomiting Polyethylene Glycol (Polyethylene Glycol 3350 17 Gm Packet) 17 gm PO DAILY [facility] Last Admin: 06/01/21 08:07 Dose: 17 gm Documented by: Sodium Chloride (Sodium Chloride Flush 0.9% 10 Ml Syringe) 10 ml IVP PRN PRN PRN Reason: NEEDED PER PROVIDER ORDERS Sodium Chloride (Sodium Chloride Flush 0.9% 10 Ml Syringe) 10 ml IVP 0100,0900,1700 [facility] Last Admin: 06/01/21 08:07 Dose: 10 ml Documented by: Tramadol HCl (Tramadol 50 Mg Tablet) 50 mg PO Q4HR PRN PRN Reason: PAIN Last Admin: 05/31/21 20:03 Dose: 50 mg Documented by: Aspirin [Lafe Aspirin] 81 mg PO DAILY 05/05/21 Atorvastatin [Lipitor] 20 mg PO QPM 05/05/21 Losartan [Cozaar] 50 mg PO DAILY 05/05/21 Metoprolol Succinate [Toprol Xl] 50 mg PO DAILY 05/05/21 Warfarin Sodium [Coumadin] 2 mg PO SUMOWETHFR 05/05/21 Warfarin [Coumadin] 1 mg PO TU 05/29/21 Objective - Vital Signs/Intake & Output Reviewed Vital Signs: Yes Vital Signs: Vital Signs x48h Temp Pulse Resp BP Pulse Ox 06/01/21 05:00 36.5 C 77 16 118/58 L 98 Intake & Output: Intake & Output 05/29/21 05/30/21 05/31/21 06/01/21 23:59 23:59 23:59 23:59 Intake Total 3488.333 320 940 Output Total 450 1350 Balance 3038.333 320 -410 - Objective General Appearance: positive: No acute distress, Alert Eyes Bilateral: positive: Normal inspection, Conjunctivae nml ENT: positive: ENT inspection nml Neck: positive: Nml inspection Respiratory: positive: No respiratory distress. negative: Wheezes, Rales Cardiovascular: positive: Irregularly irregular. negative: Tachycardia, Systolic murmur Abdomen: positive: Nml bowel sounds, No distention, Tenderness (In the left lowe r quadrant.). negative: Guarding, Rebound Skin: positive: Warm, Dry Extremities: positive: Pedal edema (Trace edema in bilateral lower extremities.), Other (Her left lower extremity is not nearly as tender as it was before. Increased range of motion of the left hip but this is limited due to pain. +2 dorsalis pedis pulses in the left lower extremity.) Neurologic/Psychiatric: negative: Disoriented to person, Disoriented to place - Lab Results Fish Bones: 06/01/21 05:24 06/01/21 05:24 Other Labs: Lab Results x24hrs 06/01/21 06/01/21 06/01/21 Range/Units 05:24 05:24 05:24 WBC 3.9 L (4.8-10.8) x10^3/uL RBC 2.60 L (4.20-5.40) 10^6/uL Hgb 8.1 L (12.0-16.0) g/dL Hct 24.8 L (37.0-47.0) % MCV 95.4 (81.0-99.0) fL MCH 31.2 H (27.0-31.0) pg MCHC 32.7 (32.0-36.0) g/dL RDW 15.4 H (12.0-15.0) % Plt Count 217 (130-450) 10^3/uL MPV 9.3 (7.9-10.8) fL Neut # (Auto) 3.1 (1.5-6.6) 10^3/uL Lymph # (Auto) 0.3 L (1.5-3.5) 10^3/uL Snyder # (Auto) 0.4 (0.0-1.0) 10^3/uL Eos # (Auto) 0.1 (0.0-0.7) 10^3/uL Baso # (Auto) 0.0 (0.0-0.1) 10^3/uL Absolute Nucleated RBC 0.00 x10^3/uL Nucleated RBC % 0.0 /100WBC PT 11.5 (9.9-12.6) secs INR 1.0 (0.8-1.2) Sodium 140 (135-145) mmol/L Potassium 4.2 (3.5-5.0) mmol/L Chloride 102 (101-111) mmol/L Carbon Dioxide 30 (21-32) mmol/L Anion Gap 8.0 (6-13) BUN 15 (6-20) mg/dL Creatinine 0.5 (0.4-1.0) mg/dL Estimated GFR (MDRD) 120 (>89) Glucose 100 (70-100) mg/dL Calcium 8.2 L (8.5-10.3) mg/dL 05/31/21 05/31/21 Range/Units 21:54 11:20 WBC (4.8-10.8) x10^3/uL RBC (4.20-5.40) 10^6/uL Hgb 8.3 L 8.5 L (12.0-16.0) g/dL Hct 25.4 L 26.0 L (37.0-47.0) % MCV (81.0-99.0) fL MCH (27.0-31.0) pg MCHC (32.0-36.0) g/dL RDW (12.0-15.0) % Plt Count (130-450) 10^3/uL MPV (7.9-10.8) fL Neut # (Auto) (1.5-6.6) 10^3/uL Lymph # (Auto) (1.5-3.5) 10^3/uL Snyder # (Auto) (0.0-1.0) 10^3/uL Eos # (Auto) (0.0-0.7) 10^3/uL Baso # (Auto) (0.0-0.1) 10^3/uL Absolute Nucleated RBC x10^3/uL Nucleated RBC % /100WBC PT (9.9-12.6) secs INR (0.8-1.2) Sodium (135-145) mmol/L Potassium (3.5-5.0) mmol/L Chloride (101-111) mmol/L Carbon Dioxide (21-32) mmol/L Anion Gap (6-13) BUN (6-20) mg/dL Creatinine (0.4-1.0) mg/dL Estimated GFR (MDRD) (>89) Glucose (70-100) mg/dL Calcium (8.5-10.3) mg/dL ABX Reporting Has patient been on IV antibiotics over the past 48 hours?: No Assessment/Plan - Problem List (1) Hematoma of left iliopsoas muscle Impression: This is the cause of her acute blood loss anemia. This was likely secondary to supratherapeutic INR. As mentioned below, her hemoglobin appears to have stabilized although slightly decreasing this morning. We will keep her hospitalized 1 more night to ensure there is no evidence of significant bleeding. Her Coumadin will be discontinued on discharge. She will need a repeat CT of the abdomen pelvis in 4 to 6 weeks to ensure resolution of the hematoma. (2) Acute blood loss anemia Impression: This appears to have stabilized although the hemoglobin is slightly decreasing this morning. To be certain, we will keep her hospitalized one more night to ensure there is no evidence of significant bleeding. We will recheck her hemoglobin this evening at 5 PM and if this value and tomorrow morning is stable then she can be discharged home. We have started her on oral iron. (3) Supratherapeutic INR Impression: This was reversed with FFP and vitamin K. Her INR is now 1.0. She was on Coumadin for a tribulation but this will be discontinued on discharge given the iliopsoas hematoma. (4) Near syncope Impression: This was likely due to the hemorrhage that is now evident. There has been no evidence of arrhythmia on telemetry as she has been in atrial fibrillation which is chronic for her. (5) Left thigh pain Impression: This is secondary to the left iliopsoas hematoma. We are continuing pain control with Tylenol and tramadol as needed. We are avoiding NSAIDs given the bleeding. (6) Atrial flutter Impression: She is rate controlled as we resumed her home metoprolol. We will discontinue the Coumadin on discharge given the iliopsoas hematoma. I have recommended to the patient's family that if anticoagulation is resumed in the future then a NOAC should be considered given her INRs have been labile. (7) Asymptomatic bacteriuria Impression: Although we do not normally treat asymptomatic bacteriuria, vascular surgery did recommend treating with antibiotics given the left iliopsoas hematoma to prevent an abscess from developing. Urine culture grew E. coli that is sensitive to ceftriaxone and ciprofloxacin. Today is day 4 of treatment and we will continue Ceftin for a total of 7 days. (8) History of stroke Impression: She had a stroke in September 2020 where she was hospitalized at [facility]. We are continuing her Lipitor but holding the Coumadin and aspirin given the iliopsoas hematoma. These will need to be held on discharge and can be resumed in the outpatient setting once the repeat CT of the abdomen pelvis is obtained in 4 to 6 weeks. (9) Dehydration Impression: She did appear dehydrated initially and she has since been resuscitated with IV fluids.
[2021-06-01] MEDS: METOPROLOL SUCCINATE 50 MG TABLET PO SCH (08:07)
[2021-06-01] MEDS: FERROUS SULFATE 325 MG TABLET PO SCH (08:07)
[2021-06-01] MEDS: polyethylene glycoL 3350 17 GM PACKET PO SCH (08:07)
[2021-06-01] MEDS: MULTIVITAMIN W/MINERALS TABLET PO SCH (08:07)
[2021-06-01 17:05] LABS: HCT - HEMATOCRIT 27.4 % (37.0-47.0); HGB - HEMOGLOBIN 8.8 g/dL (12.0-16.0)
[2021-06-01] MEDS: ATORVASTATIN 10 MG TABLET PO SCH (21:30)
[2021-06-02] MEDS: SODIUM CHLORIDE FLUSH 0.9% 10 ML SYRINGE IVP SCH ×2 (00:03→09:00)
[2021-06-02 06:04] LABS: BASOPHILS % (AUTO) 0.3 %; EOSINOPHILS # (AUTO) 0.1 10^3/uL (0.0-0.7); EOSINOPHILS % (AUTO) 2.1 %; HCT - HEMATOCRIT 26.2 % (37.0-47.0); HGB - HEMOGLOBIN 8.5 g/dL (12.0-16.0); LYMPHOCYTES # (AUTO) 0.3 10^3/uL (1.5-3.5); LYMPHOCYTES % (AUTO) 4.8 %; MEAN CORPUSCULAR HGB CONC 32.4 g/dL (32.0-36.0); MEAN CORPUSCULAR VOLUME 95.6 fL (81.0-99.0); MEAN PLATELET VOLUME 8.9 fL (7.9-10.8); MONOCYTES # (AUTO) 0.5 10^3/uL (0.0-1.0); MONOCYTES % (AUTO) 8.4 %; NEUTROPHILS # (AUTO) 5.1 10^3/uL (1.5-6.6); NEUTROPHILS % (AUTO) 83.9 %; PLT - PLATELET COUNT 272 10^3/uL (130-450); RED BLOOD COUNT 2.74 10^6/uL (4.20-5.40); RED CELL DISTRIBUTION WIDTH 15.3 % (12.0-15.0); WHITE BLOOD COUNT 6.1 x10^3/uL (4.8-10.8)
[2021-06-02 06:13] LABS: CALCIUM 8.4 mg/dL (8.5-10.3); CREATININE 0.5 mg/dL (0.4-1.0); POTASSIUM 4.1 mmol/L (3.5-5.0)
[2021-06-02] MEDS: polyethylene glycoL 3350 17 GM PACKET PO SCH (08:58)
[2021-06-02] MEDS: FERROUS SULFATE 325 MG TABLET PO SCH (08:58)
[2021-06-02] MEDS: METOPROLOL SUCCINATE 50 MG TABLET PO SCH (08:59)
[2021-06-02] MEDS: MULTIVITAMIN W/MINERALS TABLET PO SCH (08:59)
[2021-06-02] MEDS: traMADol 50 MG TABLET PO PRN (11:40)
--- NOTE | 2021-06-02 12:42 | Discharge Plan ---
Discharge Plan Problem Reviewed?: Yes Disposition: Home, Self Care Condition: Stable Prescriptions: Ferrous Sulfate [Feosol] 325 mg PO DAILYWM #30 tablet Diet: Regular Activity Restrictions: Activity as Tolerated Shower Restrictions: No Driving Restrictions: Yes Health Concerns: The patient was admitted with weakness, and we found a drop in her hemoglobin, suggesting she was bleeding and the source was found to be blood accumulation (hematoma) in her left lower pelvic area muscles, this was causing the left leg pain. The cause for this bleeding was from an excessively elevated INR of 8, due to Coumadin use. She should now stay off aspirin and Coumadin (for probably 4-6 weeks), until her primary doctor decides if it is safe to restart any blood thinner and probably she should be on one of the newer blood thinners going forward (like Eliquis or Xarelto, for example). She will need repeat CT of the area in 4 to 6 weeks to evaluate that muscle (iliopsoas muscle). She was treated for a bacterial infection while here. She has been started on new iron replacement therapy to take daily, because of the drop in hemoglobin and resultant anemia. The new prescription was electronically sent to her [facility] pharmacy. Plan of Treatment: As above. Care Goals: Improvement in symptoms and stabilization are the goals. Assessment: Written reminders are provided at the time of discharge for the patient's [id number] (her caregiver). No Smoking: If you smoke, Please STOP! Call for help. Follow-up with: Danii Wilkins MD [Primary Care Provider] -
--- NOTE | 2021-06-02 14:24 | DISCHARGE SUMMARY ---
Discharge Summary Admit Date: 05/28/21 Discharge Date: 06/02/21 Discharging Provider: Dr Saba Rebolledo Primary Care Provider: Dr Danii Wilkins Condition at Discharge: Stable Discharge Disposition: [facility] History of Present Illness: From the admission H&P of Dr Abel Portillo: This is a 75-year-old female with a past medical history significant for atrial fibrillation/flutter on Coumadin who presents today after having a syncopal episode at home. The patient tells me she is here today because of leg pain. She denies any syncope. She states her leg has been painful for the past few days and this has caused her to ambulate less. She states the pain is thr oughout her leg and she had decreased range of motion due to the pain. It is worse with activity and better with rest. She reports no numbness or tingling in the lower extremities. She denies any trauma or falls. She reports no chest pain, dyspnea. She does not believe that she passed out today. She denies any cough, fever, chills, dysuria, urgency, hematuria. She believes she has had adequate oral intake over the past few days. The patient's daughter in law tells me that today when the patient got out of bed to walk with a walker she all of a sudden became quite "shaky." The patient became less responsive but did not completely pass out. She brought the patient down to her knees to prevent a fall and she felt like her eyes became glossy and rolled back for a brief period. She did not notice any seizure-like activity per se but she felt like it was close to a seizure. She did not notice any urinary incontinence. She states she has similar episode over a year ago and it was attributed to dehydration at that time. She states the patient has not eat or drink very much whatsoever and she stays in bed for most of the day. She does not report has been in physical therapy and her biggest complaint lately has just been the left leg pain. She saw her primary care edition prescribe her tramadol yesterday but she has not yet taken this. She tells me that the patient was diagnosed with urinary tract infection last month and she completed 2 weeks of treatment for it. She states the patient has been compliant with her Coumadin and and the only recent medication change was the antibiotics which she is no longer taking. The patient did have a stroke in September of this year and she was hospitalized for 5 days. The patient reportedly has not been quite the same since then and can be a little forgetful at times and just does not participate in activity as much as she used to. She normally uses a walker to ambulate. In the emergency department, she is noted to be hemodynamically stable. She was given IV fluids and labs were obtained which were unremarkable including a normal troponin and lactic acid. CT head was unremarkable. Chest x-ray suggested a trace effusion versus atelectasis or pneumonia. Urinalysis revealed pyuria and leukocyte esterase with few bacteria. She was given ceftriaxone in the emergency department. Given the above findings, the Hospitalist was consulted for admission. The patient has a POLST form which states she is a DNR and she confirms this today. - HOSPITAL COURSE Hospital Course: (1) Dehydration She did appear dehydrated initially and this probably contributed to her near- syncope or syncope. She improved with IV fluids. (2) Near syncope This was likely due to the hemorrhage (see below). There was no evidence of arrhythmia on telemetry as she was in rate-controlled atrial fib-flutter, which is chronic for her. (3) Hematoma of left iliopsoas muscle She underwent imaging of the left leg and her pelvis, which showed no fracture or disclocation. Then abd/pelvis CT imaging showed enlargement of the left psoas and ileopsoas muscle, consistent with a hematoma. This was the cause of her acute blood loss anemia (see below), andit was likely secondary to the supratherapeutic INR. Vascular Surgery was contacted who advised monitoring for worsening. Her Coumadin was advised to be discontinued. She required meds for pain control. She will need a repeat CT of the abdomen/pelvis in 4 to 6 weeks to ensure resolution of the hematoma. (4) Acute blood loss anemia The Hgb dropped from 12.1 to 8.5 the next day. She got a Unit of blood when Hgb was at it's lowest of 7.4. The Hgb stabilized at 7.8-8.8. She was started on oral iron and discharged on this. (5) Supratherapeutic INR This was reversed with FFP and vitamin K. Her INR became 1.0. She had been on Coumadin for afib stroke prophylaxis, but this was advised to be discontinued going forward, given the significant iliopsoas hematoma. (6) Left thigh pain She had pain in the left flank extending to her thigh. This was secondary to the left iliopsoas hematoma. We ordered Tylenol and tramadol prn. We avoided NSAIDs given the bleeding. She was discharged home with Home Health for PT. (7) Atrial flutter She was rate-controlled and we resumed her home metoprolol. We did discontinue the Coumadin on discharge given the iliopsoas hematoma. The Hospitalist recommended to the patient's family that if anticoagulation is resumed in the future, then a Novel Oral AntiCoag should be considered, since her INRs have been labile. (8) Asymptomatic bacteriuria Although we do not normally treat asymptomatic bacteriuria, Vascular Surgery did recommend treating with antibiotics, given the left iliopsoas hematoma, in order to prevent an abscess from developing. Urine culture grew E. coli that was sensitive to ceftriaxone and ciprofloxacin. She received iv Cetriaxone and we advised continued antibx using oral Ceftin for several more days. (9) History of stroke She had a stroke in September 2020 qnd she was hospitalized at [facility]. We continued her Lipitor but stopped the Coumadin and aspirin given the iliopsoas hematoma. These were ordered to discontinue at discharge and can be resumed in the outpatient setting once the repeat CT of the abdomen pelvis is obtained and shows improvement, in 4 to 6 weeks. - ALLERGIES Allergies/Adverse Reactions: Allergies Allergy/AdvReac Type Severity Reaction Status Date / Time morphine Allergy Unknown Verified 05/28/21 10:48 - MEDICATIONS Home Medications: Ambulatory Orders Medication Instructions Recorded Confirmed Atorvastatin [Lipitor] 20 mg PO QPM 05/05/21 05/29/21 Losartan [Cozaar] 50 mg PO DAILY 05/05/21 05/29/21 Metoprolol Succinate [Toprol Xl] 50 mg PO DAILY 05/05/21 05/29/21 Ferrous Sulfate [Feosol] 325 mg PO DAILYWM #30 tablet 06/02/21 traMADol [Ultram] 50 mg PO Q4-6H #10 tablet 06/02/21 - PHYSICAL EXAM AT DISCHARGE General Appearance: positive: No acute distress, Alert Eyes Bilateral: positive: Normal inspection, EOMI ENT: positive: ENT inspection nml, No signs of dehydration Neck: positive: Nml inspection, No JVD Respiratory: positive: No respiratory distress Cardiovascular: positive: Irregularly irregular, Systolic murmur Abdomen: positive: Non-tender, No distention Skin: positive: Other (Pale) Extremities: positive: No pedal edema Neurologic/Psychiatric: positive: Disoriented to person, Disoriented to place, Disoriented to time, Other (Non-focal) - LABS Result Diagrams: 06/02/21 05:51 06/02/21 05:51 - DIAGNOSTIC IMAGING Diagnostic Imaging Results: Final report reviewed - FOLLOW UP Follow Up: See PCP in 2-4 weeks for hospital follow-up. Repeat imaging needs to be ordered by PCP. - TIME SPENT Time Spent in Discharge (Minutes): 50
[2021-06-02 16:18] VITALS: BP 120/66
== END 2021-06-02 18:32 | disposition home health service (06) | DRG 813 ==
LOC: EDUNIT# → ED 10:40 → MS2 17:00 → OBSVTOIN 05-29 16:12
PROVIDERS: ADMIT Internal Medicine; ATTEND Internal Medicine
PROC: 30233N1 Transfusion of Nonautologous Red Blood Cells into Peripheral Vein, Percutaneous Approach (ICD-10-PCS; principal; 2021-05-29)
DX: D68.8 Other specified coagulation defects (principal); D62 Acute posthemorrhagic anemia; I48.92 Unspecified atrial flutter; M79.652 Pain in left thigh; S70.12XA Contusion of left thigh, initial encounter; E86.0 Dehydration; R55 Syncope and collapse; R82.71 Bacteriuria; X58.XXXA Exposure to other specified factors, initial encounter; Z20.822 Contact with and (suspected) exposure to COVID-19; R01.1 Cardiac murmur, unspecified; I48.91 Unspecified atrial fibrillation; Z79.01 Long term (current) use of anticoagulants; Z86.73 Personal history of transient ischemic attack (TIA), and cerebral infarction without residual deficits; Z66 Do not resuscitate; I10 Essential (primary) hypertension; Z87.440 Personal history of urinary (tract) infections
CPT/HCPCS: 36415; 36430; 70450; 71045; 73502; 73552; 74177; 80048; 80053; 81001; 82272; 82728; 83540; 83605; 83690; 83735; 84466; 84484; 85014; 85018; 85025; 85610; 86850; 86900; 86901; 86920; 87040; 87086; 87181; 87631; 93005; 96361; 96365; 96375; 97116; 97162; 97530; 99284; 99285; A9270; G0378; J7120; P9016; P9017; Q9967; 0202U; 81003